=== PATIENT | male | born 1995 | race Caucasian/White ===

== ENCOUNTER 2016-07-23 15:43 | Emergency (ER) | payer BC ==
[2016-07-23 15:59] VITALS: BP 119/67
--- NOTE | 2016-07-23 16:42 | UC ---
Head Injury HPI - HPI Summary HPI Summary: The patient comes in today for: 1. Headache: Onset: Last night. Palliative/provocative: light and sounds makes his condition worse. Quality: Sharp at times and throbbing. Region: Whole head. Severity: 10/10 initially, but now "100/10." Time: Constant. Associated symptoms: Event: He "blacked out" 11 PM last night. He and his friends were not drinking alcohol, but were smoking pot 1-2 hours before. He was standing at the time of his event. It was then that his vision became blurry. He felt like he was going to faint. So he bent over and then he "passed out." He does not know if he hit his head at that time. But, from what his friends told him, he hit his head. He has a sore area on the back of his head. But, neither the patient nor his friends knew on what he hit the back of his head. He had LOC on the floor for "a few seconds." He was taken back to his friend's dorm. The patient walked with supported from one building to another--5 minute walk. While he was at his friends dorm room, some RA's came (some who had EMT training ). He was told to go to the ER. He went to [facility]. He states that he did not know what was going on at the hospital. He states that he had a CT scan and was told that he had a concussion and discharged. He states that while he was there, they "put a bunch of things on my chest and a thing on my finger." He was given something for vomiting while there. After he was discharged, his friend drove him back to his friend's dorm room--he does not know the time. He slept until "just 20 minutes ago" and came to see us. Vomiting: He vomited from the time he hit his head and through his stay at the hospital "more than once and less than 10." He also vomited x 1 on his ride back to his friends room. He slept until about "20 minutes ago" but once he woke up--he vomited two more times. He went to the gas station and vomited once more before coming here. He states that he has photophobia, increased fatigue, dizziness, nausea, but the nausea is now better. He denies any focal numbness or weakness. But, he would also feel like he was going to pass out. He states that he has neck pain also. 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 Endocrine History Of: Denies: Diabetes, Thyroid Disease, Hyperthyroidism, Hypothyroidism, Dyslipidemia Cardiovascular History Of: Denies: Cardiac Disorders, Hypertension, Pacemaker/ICD, Myocardial Infarction , Congestive Heart Failure, Atrial Fibrillation, Deep Vein Thrombosis, Bleeding Disorders Respiratory History Of: Denies: COPD, Asthma, Bronchitis, Pneumonia, Pulmonary Embolism GI/ History Of: Denies: Gastroesophageal Reflux, Ulcer, Gastrointestinal Bleed, Gall Bladder Disease, Kidney Stones, Diverticulitis, Renal Disease, Urosepsis Neurological History Of: Denies: TIA, CVA, Dementia, Seizures, Migraine Psychological History Of: Denies: Anxiety, Depression, Bipolar Disorder, Schizophrenia, Post Traumatic Stress Disorder Cancer History Of: Denies: Lung Cancer, Colorectal Cancer, Breast Cancer, Prostate Cancer, Cervical Cancer Other History Of: Negative For: HIV, Hepatitis B, Hepatitis C, Anticoagulant Therapy - Surgical History Surgical History: None - Family History Known Family History: Negative: Cardiac Disease, Hypertension - Social History Occupation: Student Alcohol Use: None Substance Use Type: Marijuana Smoking Status (MU): Never Smoked Tobacco Review of Systems Constitutional: Negative Skin: Negative Eyes: Negative ENT: Negative Respiratory: Negative Cardiovascular: Negative Gastrointestinal: Negative Genitourinary: Negative Neurological: Headache All Other Systems Reviewed And Are Negative: Yes Physical Exam Triage Information Reviewed: Yes Completion Of Physical Exam Limited Due To: Altered Mental Status Appearance: Pain Distress, Thin, Other: - He was laying in the room with all the lights off. He was able to give a coherent history with repeated questioning. He grimaced when moving. Vital Signs: Initial Vital Signs Temp 98.8 F 07/23/16 15:50 Pulse 71 07/23/16 15:50 Resp 18 07/23/16 15:50 BP 119/67 07/23/16 15:50 Pulse Ox 100 07/23/16 15:50 Vital Signs Reviewed: Yes Eyes: Positive: Conjunctiva Clear. Negative: Discharge ENT: Positive: Hearing grossly normal. Negative: Pharyngeal erythema, Nasal congestion, Nasal drainage, TM bulging, TM dull, TM red - No hemotympanium., Tonsillar swelling, Tonsillar exudate Dental: Negative: Gross Decay/Caries @, Dental Fracture @ Neck: Positive: Supple, Nontender, No Lymphadenopathy. Negative: Nuchal Rigidity - He did not have the nuchal rigidity of meningitis, but moving the head in flexion, extension and rotation and lateral flexion was painful. Respiratory: Positive: Lungs clear, No respiratory distress, No accessory muscle use. Negative: Crackles, Rhonchi, Wheezing Cardiovascular: Positive: RRR, No Murmur Abdomen Description: Positive: Nontender, No Organomegaly, Soft. Negative: Distended, Guarding Musculoskeletal: Positive: Strength Intact, ROM Intact, No Edema Neurological: Positive: Alert, Muscle Tone Normal, Other: - Neurologic exam: Inspection: no fasciculations. Cranial nerves (II-XII): intact Muscular tone: Reflexes: Biceps: 2+/2 x 2 Triceps: 2+/2 x 2 Brachioradialis: 2+/2 x 2 Patellar: 2+/2 x 2 Achilles: 2+/2 x 2 Coordination: Upper extremity: Alternating patting of thighs, alternating fingertips to thumb, index finger tip to nose--all normal. Lower extremity: Heel along deleon--normal. Strength: Upper extremity: appropriate for age and symmetrical Lower extremity: appropriate for age and symmetrical Gait: Regular: Normal. Heel to toe: He was able to complete this, but was a bit unsteady. Rhomberg: Normal. Sensation: No complaint of numbness. Psychological: Positive: Normal Response To Family, Age Appropriate Behavior, Consolable Skin: Positive: rashes - He had redness to the back of his head and this red area was tender, but no breaks in the skin. There was slight edema. Head Injury Course/Dx - Course Course Of Treatment: The patient and his mother were told that I was concerned about his worsening headache and thought he should be re-evaluated in an ER. He agreed with his mother to go to [facility]. - Differential Dx/Diagnosis Provider Diagnoses: Head injury with concussion. Neck pain. - Physician Notification/Consults Discussed Patient Care With: Dr. Sifuentes Time Discussed With Above Provider: 17:15 Discharge - Discharge Plan Condition: Stable Disposition: AGAINST MEDICAL ADVICE Additional Instructions: Please go directly to the [facility].
== END 2016-07-23 17:33 | disposition left against medical advice (07) ==
LOC: UCEAST 15:43
DX: S06.0X9A Concussion with loss of consciousness of unspecified duration, initial encounter (principal); M54.2 Cervicalgia; F12.929 Cannabis use, unspecified with intoxication, unspecified; W18.30XA Fall on same level, unspecified, initial encounter
CPT/HCPCS: 99213; G0463

== ENCOUNTER 2016-07-23 17:41 | Inpatient (IN) | payer BC ==
--- NOTE | 2016-07-23 18:47 | ED ---
Head Injury - HPI Summary HPI Summary: 21 M presents with head injury yesterday s/p passing out and hitting his head after smoking marijuana. He was seen in [facility] and sent home with concussion. He states that he never received his CT results. He says he has vomited 5 times and is nauseous. He admits to headache and sensitivity to light. He denies any blurry vision. He has bump on the back of his head but denies any abrasion. He states that he had tunnel vision before it occurred and became dizzy and tried to lower self to floor. He is currently dizzy now. He was transferred here from in a C-col[place]. He admits to neck pain that started today. He does not know his family history because he was admitted. He admits to smoking pot in his dorm room where the incident occurred. He does not remember anything after developing tunnel vision. He struck his head on the tile floor. His friend took him to the RA who had him sent to the [facility]. An EKG was done at [facility] and was normal. He does not know his family history because he was admitted at age 4 from [place] with his twin brother. - History Of Current Complaint Pain Intensity: 10 <eTresa Moore - Last Filed: 07/23/16 22:15> <Dwight Sifuentes - Last Filed: 08/07/16 22:15> - History Of Current Complaint Chief Complaint: EDHeadache Stated Complaint: HEAD INJURY Time Seen by Provider: 07/23/16 17:55 - Allergies/Home Medications Allergies/Adverse Reactions: Allergies Allergy/AdvReac Type Severity Reaction Status Date / Time No Known Allergies Allergy Verified 03/11/14 15:42 PMH/Surg Hx/FS Hx/Imm Hx Endocrine/Hematology History: Denies: Hx Anticoagulant Therapy, Hx Diabetes, Hx Thyroid Disease Cardiovascular History: Denies: Hx Congestive Heart Failure, Hx Deep Vein Thrombosis, Hx Hypertension , Hx Myocardial Infarction, Hx Pacemaker/ICD Respiratory History: Denies: Hx Asthma, Hx Chronic Obstructive Pulmonary Disease (COPD), Hx Lung Cancer, Hx Pneumonia, Hx Pulmonary Embolism GI History: Denies: Hx Gall Bladder Disease, Hx Gastrointestinal Bleed, Hx Ulcer, Hx Urosepsis History: Denies: Hx Kidney Stones, Hx Renal Disease Neurological History: Denies: Hx Dementia, Hx Migraine, Hx Seizures, Hx Transient Ischemic Attacks (TIA) Psychiatric History: Denies: Hx Anxiety, Hx Depression, Hx Schizophrenia, Hx Bipolar Disorder Infectious Disease History: No Infectious Disease History: Denies: Hx Hepatitis, Hx Human Immunodeficiency Virus (HIV), Traveled Outside the [place] in Last 30 Days - Family History Known Family History: Positive: Unknown - adopted - Social History Occupation: Student Alcohol Use: None Substance Use Type: Reports: Marijuana Smoking Status (MU): Never Smoked Tobacco <Teresa Moore - Last Filed: 07/23/16 22:15> Review of Systems Negative: Fever Positive: Photophobia. Negative: Blurred Vision, Diplopia Negative: Chest Pain Negative: Shortness Of Breath Positive: Vomiting - resolved, Nausea Positive: Myalgia - neck pain Positive: Headache, Syncope All Other Systems Reviewed And Are Negative: Yes <Teresa Moore - Last Filed: 07/23/16 22:15> Physical Exam Triage Information Reviewed: Yes Vital Signs On Initial Exam: Initial Vitals Temp Pulse Resp BP Pulse Ox 97.3 F 92 17 103/66 100 07/23/16 17:45 07/23/16 17:45 07/23/16 17:45 07/23/16 17:45 07/23/16 17:45 Vital Signs Reviewed: Yes Appearance: Positive: Well-Appearing Skin: Positive: Warm, Dry Head/Face: Positive: Normal Head/Face Inspection, Other - no step off, racoon eyes, wood sign Eyes: Positive: Normal, EOMI, VERNON, Conjunctiva Clear ENT: Positive: Normal ENT inspection, Pharynx normal, TMs normal Neck: Positive: Supple, No Lymphadenopathy, Other: - tenderness to side of neck Respiratory/Lung Sounds: Positive: Clear to Auscultation, Breath Sounds Present Cardiovascular: Positive: Normal, RRR Neurological: Positive: Sensory/Motor Intact, Alert, Oriented to Person Place, Time, CN Intact II-III <Teresa Moore - Last Filed: 07/23/16 22:15> Vital Signs On Initial Exam: Initial Vitals Temp Pulse Resp BP Pulse Ox 97.3 F 92 17 103/66 100 07/23/16 17:45 07/23/16 17:45 07/23/16 17:45 07/23/16 17:45 07/23/16 17:45 <Dwight Sifuentes Last Filed: 08/07/16 22:15> Diagnostics - Vital Signs Vital Signs Temp Pulse Resp BP Pulse Ox 07/23/16 17:45 97.3 F 92 17 103/66 100 - Laboratory Result Diagrams: 07/23/16 19:45 07/23/16 19:45 Lab Statement: Any lab studies that have been ordered have been reviewed, and results considered in the medical decision making process. - CT head CT Interpretation: Positive (See Comments) - IMPRESSION: 1. Nondisplaced fracture of the left occiput as described above. 2. 9 mm focus of subarachnoid hemorrhage just anterior to the anterior inferior margin of the right temporal lobe and small focus of subarachnoid hemorrhage along the medial aspect of the right frontal lobe. 3. No acute fracture or dislocation involving the cervical spin CT Interpretation Completed By: Radiologist <Teresa Moore - Last Filed: 07/23/16 22:15> - Vital Signs Vital Signs Temp Pulse Resp BP Pulse Ox 07/23/16 17:45 97.3 F 92 17 103/66 100 - Laboratory Lab Results: Lab Results 07/23/16 07/23/16 Range/Units 19:45 19:45 WBC 11.1 H (3.5-10.8) 10^3/ul RBC 5.42 H (4.0-5.4) 10^6/ul Hgb 15.1 (14.0-18.0) g/dl Hct 45 (42-52) % MCV 83 (80-94) fL MCH 28 (27-31) pg MCHC 34 (31-36) g/dl RDW 13 (10.5-15) % Plt Count 180 (150-450) 10^3/ul MPV 9 (7.4-10.4) um3 Neut % (Auto) 74.0 (38-83) % Lymph % (Auto) 16.6 L (25-47) % [place] % (Auto) 6.9 (1-9) % Eos % (Auto) 0.2 (0-6) % Baso % (Auto) 2.3 H (0-2) % Absolute Neuts (auto) 8.2 H (1.5-7.7) 10^3/ul Absolute Lymphs (auto) 1.8 (1.0-4.8) 10^3/ul Absolute Monos (auto) 0.8 (0-0.8) 10^3/ul Absolute Eos (auto) 0 (0-0.6) 10^3/ul Absolute Basos (auto) 0.3 H (0-0.2) 10^3/ul Absolute Nucleated RBC 0 10^3/ul Nucleated RBC % 0 Sodium 139 (133-145) mmol/L Potassium 3.8 (3.5-5.0) mmol/L Chloride 103 (101-111) mmol/L Carbon Dioxide 30 (22-32) mmol/L Anion Gap 6 (2-11) mmol/L BUN 14 (6-24) mg/dL Creatinine 0.91 (0.67-1.17) mg/dL Est GFR ( Amer) 136.6 (>60) Est GFR (Non-Af Amer) 106.2 (>60) BUN/Creatinine Ratio 15.4 (8-20) Glucose 109 H (70-100) mg/dL Calcium 10.0 (8.6-10.3) mg/dL Total Bilirubin 0.80 (0.2-1.0) mg/dL AST 16 (13-39) U/L ALT 10 (7-52) U/L Alkaline Phosphatase 85 (34-104) U/L Total Protein 7.3 (6.4-8.9) g/dL Albumin 4.5 (3.2-5.2) g/dL Globulin 2.8 (2-4) g/dL Albumin/Globulin Ratio 1.6 (1-3) Serum Alcohol < 10 (<10) mg/dL Result Diagrams: 07/23/16 19:45 07/23/16 19:45 Lab Statement: Any lab studies that have been ordered have been reviewed, and results considered in the medical decision making process. <Dwight Sifuentes - Last Filed: 08/07/16 22:15> Head Injury Course/Dx Course Of Treatment: 21 M presents with head injury s/p syncopal event yesterday. He has not passed out before. was smoking pot but denies any other drug or ETOH. Hit head on tile floor when passed out. went to [facility] and diagnosed with concussion, has vomitied 5 times since, admits to nausea, dizziness, and severe headache currently, normal neuro exam, CT head shows nondisplaced fracture of left occiput, 2 subarchnoid hemorrhage present, spoke with dr Fritz, neurology, instructed to place on keppra 750 mg bid for 7 days, keep systolic <140, get CT tomorrow, and admit to medicine, spoke with dr coburn who will admit, patient understands and agrees with plan - Diagnoses Differential Diagnosis/HQI/PQRI: Cerebral Contusion, Concussion With LOC, Intracranial Bleed - Physician Notifications Discussed Care Of Patient With: dr fritz Time Discussed With Above Provider: 19:29 - place on keppra 750 mg bid X7 days, admit to medicine, CT tomorrow, keep systolic bp below 140 <Teresa Moore - Last Filed: 07/23/16 22:15> Assessment/Plan: Patient not presented, seen or examen by me WR <Dwight Sifuentes - Last Filed: 08/07/16 22:15> - Diagnoses Provider Diagnoses: Fracture of left side of occipital bone, Subarachnoid hemorrhage Discharge <Teresa Moore - Last Filed: 07/23/16 22:15> <Dwight Sifuentes - Last Filed: 08/07/16 22:15> - Discharge Plan Condition: Stable Disposition: ADMITTED TO [facility]
--- NOTE | 2016-07-23 19:19 | RAD ---
indication: Head and neck pain after a fall following a syncopal episode the previous night COMPARISON: CT of the brain dated July 01, [address] scan of the brain and c-spine was performed without intravenous contrast enhancement. Contiguous axial sections were obtained from the lung apices through the vertex. BRAIN: Beginning at the left side of the foramen magnum (image 3 of 32) there is a nondisplaced fracture in the posterior occipital bone extending approximately to the level of the occipital tubercle (image 12 of 32). Along the medial margin of the right frontal lobe (axial image 7 and coronal image 34) there is a hyperdense focus compatible with subarachnoid hemorrhage measuring up to 8 mm in length in the axial plane. On the axial images there is an 8 mm extra-axial focus immediately anterior to the inferior most portion of the right temporal lobe (axial image 4 of 32). On the sagittal reformats (image 39 of 123) is extra-axial hemorrhage and measures 9 mm in the cephalocaudal projection. The brain is otherwise normal in appearance. The gomez-white matter differentiation is appropriately maintained. There is no significant mass effect, midline shift or evidence of herniation. The mastoid air cells are appropriately aerated. The visualized paranasal sinuses are clear. C-SPINE: There is nonspecific straightening of the normal cervical lordosis on the sagittal view images. The vertebral bodies and facet joints are otherwise are otherwise appropriately aligned. There is no acute fracture or dislocation. There is no hyperdense material in the cervical canal to indicate hemorrhage. The visualized musculature and soft tissues are normal. There is no gross lymphadenopathy visualized. The visualized portion of the lung apices are clear. IMPRESSION: 1. Nondisplaced fracture of the left occiput as described above. 2. 9 mm focus of subarachnoid hemorrhage just anterior to the anterior inferior margin of the right temporal lobe and small focus of subarachnoid hemorrhage along the medial aspect of the right frontal lobe. 3. No acute fracture or dislocation involving the cervical spine. Findings were discussed with HORACE Hannah over the telephone at 1915 hours on July 23, 2016.
[2016-07-23] MEDS ORDERED: levETIRAcetam IV* 750 MG in NS 0.9% 100 ML* 100 ML IVPB ONE (19:30)
[2016-07-23] MEDS ORDERED: Ondansetron INJ* 2 MG/ML VIAL IV ONE (19:52)
[2016-07-23] MEDS ORDERED: Morphine INJ* 2 MG/ML 1 ML CARPUJECT IV ONE (19:52)
[2016-07-23 19:55] LABS: Hematocrit 45 % (42-52); Hemoglobin 15.1 g/dl (14.0-18.0); Mean Corpuscular HGB Conc 34 g/dl (31-36); Mean Corpuscular Hemoglobin 28 pg (27-31); Mean Corpuscular Volume 83 fL (80-94); Mean Platelet Volume 9 um3 (7.4-10.4); Red Blood Count 5.42 10^6/ul (4.0-5.4); Red Cell Distribution Width 13 % (10.5-15); White Blood Count 11.1 10^3/ul (3.5-10.8)
[2016-07-23 19:58] LABS: Add Diff/Slide Review? Slide Review Added; Comments Flag Yes
[2016-07-23] MEDS ORDERED: Ibuprofen TAB* 800 MG PO PRN (19:58)
[2016-07-23] MEDS ORDERED: Ketorolac INJ* 30 MG/ML 1 ML VIAL IV PUSH PRN (19:59)
[2016-07-23 20:09] LABS: ALT 10 U/L (7-52); AST 16 U/L (13-39); Albumin 4.5 g/dL (3.2-5.2); Alkaline Phosphatase 85 U/L (34-104); Anion Gap 6 mmol/L (2-11); BUN/Creatinine Ratio 15.4 (8-20); Blood Urea Nitrogen 14 mg/dL (6-24); CO2 Carbon Dioxide 30 mmol/L (22-32); Chloride 103 mmol/L (101-111); EGFR African American 136.6 (>60); EGFR Non-African American 106.2 (>60); Globulin 2.8 g/dL (2-4); Glucose 109 mg/dL (70-100); Potassium 3.8 mmol/L (3.5-5.0); Sodium 139 mmol/L (133-145); Total Protein 7.3 g/dL (6.4-8.9)
[2016-07-23] MEDS ORDERED: Iohexol 350* (CONTRAST) 500 ML MDV IV ONE (20:13)
[2016-07-23 20:30] LABS: Alcohol < 10 mg/dL (<10)
[2016-07-23] MEDS ORDERED: fentaNYL* 50 MCG/ML 2 ML VIAL (100 MCG VIAL) IV SLOW PU ONE (20:33)
--- NOTE | 2016-07-23 20:50 | ED ---
Head Injury - HPI Summary HPI Summary: 21 M presents with traumatic head injury yesterday s/p passing out and hitting his head from standing position after smoking marijuana . He was seen in [facility] and sent home with concussion last night . He states that he never received his CT result. He says he has vomited several times and is nauseous. He admits to headache and photophobia. He denies any blurry vision. He has bump on the back of his head but denies any abrasion. He states that he had tunnel vision before it occurred and became dizzy and tried to lower self to floor. He is currently dizzy now. He was transferred here in a C-collar. He admits to neck pain that started today. He does not remember anything after developing tunnel vision. He struck his head on the tile floor. His friend took him to the RA who had him sent to the [facility]. An EKG was done at [facility] and was normal. He does not know his family history because he was admitted at age 4 from [place] with his twin brother. - History Of Current Complaint Chief Complaint: EDHeadache Stated Complaint: HEAD INJURY Time Seen by Provider: 07/23/16 17:55 Hx Obtained From: Patient Mechanism Of Injury: Blunt Trauma Onset/Duration: Started Days Ago, Worse Since Onset of Pain: Immediate Severity Currently: Severe Severity Initially: Moderate Pain Intensity: 10 Pain Scale Used: 0-10 Numeric Location of Head Injury: Occipital Location: Diffuse Character: Dull Associated Signs And Symptoms: LOC Duration Unknown, Neck Pain - Risk Factors SDH Risk Factor: Negative Risk Factors For Cervical Spine Injury: Evidence Of Intoxication - Allergies/Home Medications Allergies/Adverse Reactions: Allergies Allergy/AdvReac Type Severity Reaction Status Date / Time No Known Allergies Allergy Verified 03/11/14 15:42 PMH/Surg Hx/FS Hx/Imm Hx Endocrine/Hematology History: Denies: Hx Anticoagulant Therapy, Hx Diabetes, Hx Thyroid Disease Cardiovascular History: Denies: Hx Congestive Heart Failure, Hx Deep Vein Thrombosis, Hx Hypertension , Hx Myocardial Infarction, Hx Pacemaker/ICD Respiratory History: Denies: Hx Asthma, Hx Chronic Obstructive Pulmonary Disease (COPD), Hx Lung Cancer, Hx Pneumonia, Hx Pulmonary Embolism GI History: Denies: Hx Gall Bladder Disease, Hx Gastrointestinal Bleed, Hx Ulcer, Hx Urosepsis History: Denies: Hx Kidney Stones, Hx Renal Disease Neurological History: Denies: Hx Dementia, Hx Migraine, Hx Seizures, Hx Transient Ischemic Attacks (TIA) Psychiatric History: Denies: Hx Anxiety, Hx Depression, Hx Schizophrenia, Hx Bipolar Disorder Infectious Disease History: No Infectious Disease History: Denies: Hx Hepatitis, Hx Human Immunodeficiency Virus (HIV), Traveled Outside the [place] in Last 30 Days - Family History Known Family History: Positive: Unknown - adopted, Other - no history of sudden cardiac Negative: Cardiac Disease, Hypertension - Social History Occupation: Student Alcohol Use: None Substance Use Type: Reports: Marijuana Smoking Status (MU): Never Smoked Tobacco Review of Systems Negative: Fever Positive: Photophobia. Negative: Blurred Vision, Diplopia Negative: Chest Pain Negative: Shortness Of Breath Positive: Vomiting - resolved, Nausea Positive: Myalgia - neck pain Positive: Headache, Syncope All Other Systems Reviewed And Are Negative: Yes Physical Exam Triage Information Reviewed: Yes Vital Signs On Initial Exam: Initial Vitals Temp Pulse Resp BP Pulse Ox 97.3 F 92 17 103/66 100 07/23/16 17:45 07/23/16 17:45 07/23/16 17:45 07/23/16 17:45 07/23/16 17:45 Vital Signs Temp 97.3 F 07/23/16 17:45 Pulse 92 07/23/16 17:45 Resp 18 07/23/16 20:41 BP 103/66 07/23/16 17:45 Pulse Ox 100 07/23/16 17:45 Intake & Output 07/23/16 07/23/16 07/24/16 07:59 19:59 07:59 Intake Total 100 Balance 100 Weight 125 lb 125 lb Intake: IV Fluids 100 Vital Signs Reviewed: Yes Appearance: Positive: Well-Appearing, Thin Skin: Positive: Warm, Dry Head/Face: Positive: Scalp - occpital area abrasion, Other - no step off, racoon eyes, wood sign Eyes: Positive: Normal, EOMI, VERNON, Conjunctiva Clear ENT: Positive: Normal ENT inspection, Pharynx normal Neck: Positive: Supple, Nontender, Other: - tenderness to side of neck Respiratory/Lung Sounds: Positive: Clear to Auscultation, Breath Sounds Present Cardiovascular: Positive: Normal, RRR Abdomen Description: Positive: Nontender Neurological: Positive: Sensory/Motor Intact, Alert, Oriented to Person Place, Time, CN Intact II-III, Facial Symmetry, Speech Normal - [place] Coma Scale Best Eye Response: 4 - Spontaneous Best Motor Response: 6 - Obeys Commands Best Verbal Response: 5 - Oriented Diagnostics - Vital Signs Vital Signs Temp Pulse Resp BP Pulse Ox 07/23/16 20:41 18 07/23/16 20:05 18 07/23/16 17:45 97.3 F 92 17 103/66 100 - Laboratory Lab Results: Lab Results 07/23/16 07/23/16 Range/Units 19:45 19:45 WBC 11.1 H (3.5-10.8) 10^3/ul RBC 5.42 H (4.0-5.4) 10^6/ul Hgb 15.1 (14.0-18.0) g/dl Hct 45 (42-52) % MCV 83 (80-94) fL MCH 28 (27-31) pg MCHC 34 (31-36) g/dl RDW 13 (10.5-15) % Plt Count 180 (150-450) 10^3/ul MPV 9 (7.4-10.4) um3 Neut % (Auto) 74.0 (38-83) % Lymph % (Auto) 16.6 L (25-47) % [place] % (Auto) 6.9 (1-9) % Eos % (Auto) 0.2 (0-6) % Baso % (Auto) 2.3 H (0-2) % Absolute Neuts (auto) 8.2 H (1.5-7.7) 10^3/ul Absolute Lymphs (auto) 1.8 (1.0-4.8) 10^3/ul Absolute Monos (auto) 0.8 (0-0.8) 10^3/ul Absolute Eos (auto) 0 (0-0.6) 10^3/ul Absolute Basos (auto) 0.3 H (0-0.2) 10^3/ul Absolute Nucleated RBC 0 10^3/ul Nucleated RBC % 0 Sodium 139 (133-145) mmol/L Potassium 3.8 (3.5-5.0) mmol/L Chloride 103 (101-111) mmol/L Carbon Dioxide 30 (22-32) mmol/L Anion Gap 6 (2-11) mmol/L BUN 14 (6-24) mg/dL Creatinine 0.91 (0.67-1.17) mg/dL Est GFR ( Amer) 136.6 (>60) Est GFR (Non-Af Amer) 106.2 (>60) BUN/Creatinine Ratio 15.4 (8-20) Glucose 109 H (70-100) mg/dL Calcium 10.0 (8.6-10.3) mg/dL Total Bilirubin 0.80 (0.2-1.0) mg/dL AST 16 (13-39) U/L ALT 10 (7-52) U/L Alkaline Phosphatase 85 (34-104) U/L Total Protein 7.3 (6.4-8.9) g/dL Albumin 4.5 (3.2-5.2) g/dL Globulin 2.8 (2-4) g/dL Albumin/Globulin Ratio 1.6 (1-3) Serum Alcohol < 10 (<10) mg/dL Result Diagrams: 07/23/16 19:45 07/23/16 19:45 Lab Statement: Any lab studies that have been ordered have been reviewed, and results considered in the medical decision making process. - CT head CT Interpretation: Positive (See Comments) - IMPRESSION: 1. Nondisplaced fracture of the left occiput as described above. 2. 9 mm focus of subarachnoid hemorrhage just anterior to the anterior inferior margin of the right temporal lobe and small focus of subarachnoid hemorrhage along the medial aspect of the right frontal lobe. 3. No acute fracture or dislocation involving the cervical spin CT Interpretation Completed By: Radiologist Head Injury Course/Dx Course Of Treatment: 21 M presents with blunt head injury s/p syncopal and fall event yesterday. He was smoking pot but denies any other drug or ETOH. Hit head on tile floor when passed out. went to [facility] ER and diagnosed with concussion, has vomitied several times since, admits to nausea, dizziness, and severe headache currently, neuro exam intact , CT head shows nondisplaced fracture of left occiput, 2 subarchnoid hemorrhage present,. Plan: Admit to observation, Medicine admission appreciated. Headache control, avoid NSAIDs and anitplatelets and antiocoagulants. keppra 750 mg bid for 7 days,. keep systolic BP <140,. Repeat CT tomorrow. Disussed with ED providers,patient and family, they understand and agree with plan. - Diagnoses Differential Diagnosis/HQI/PQRI: Cerebral Contusion, Concussion With LOC, Intracranial Bleed, Skull Fracture Provider Diagnoses: Fracture of left side of occipital bone, Subarachnoid hemorrhage - Physician Notifications Discussed Care Of Patient With: ED providers Discharge - Discharge Plan Condition: Stable Disposition: ADMITTED TO [facility] Referrals: Clive Weinberg MD [Medical Doctor] -
[2016-07-23] MEDS ORDERED: fentaNYL* 50 MCG/ML 2 ML VIAL (100 MCG VIAL) IV SLOW PU PRN (21:21)
[2016-07-23] MEDS: Morphine INJ* 4 MG/ML 1 ML CARPUJECT IV PRN (21:39)
[2016-07-23] MEDS: NS 0.9% 1000 ML* 1,000 ML IV SCH (22:47)
--- NOTE | 2016-07-24 01:09 | HP ---
HOSPITAL MEDICINE HISTORY AND PHYSICAL: DATE OF ADMISSION: 07/23/16 PRIMARY CARE PHYSICIAN: Dr. Pathak. ATTENDING PHYSICIAN: Dr. Parish Curtis *(dictation provided by Radha Conway NP). CHIEF COMPLAINT: Headache, nausea and vomiting. HISTORY OF PRESENT ILLNESS: Mr. Hunter is a 21-year-old male with no significant past medical history other than history of traumatic concussions, who presents today to the emergency room with concern for headache and nausea and vomiting. Mr. Hunter states he has been in his normal state of health when 2 days ago, he had the sudden onset of tunnel vision and syncopized while hanging out with his friends. He reports that he hit the back of his head and went unconscious. When he awoke, he "felt terrible" and had severe headache. The patient was taken to [facility] where per his report, the CT scan was obtained and he was diagnosed with a concussion. He went home with his friends and had some nausea and slept. He later returned to his home and had some nausea and vomiting. He contacted his brother who contacted his mother and she recommended that he come to our emergency room for re- evaluation. I will note that the patient does not mention any use of drugs, specifically marijuana, although the report from the emergency room physician was that the patient's syncopal episode was related to smoking marijuana. The patient's mother was at the bedside during the time of my evaluation. In our emergency room, Mr. Hunter was confirmed to have a subarachnoid hemorrhage that was very small on CT of the brain. A cervical spine CT did not show any injury. He is complaining of headache and nausea, but he has not vomited. He is photophobic. Based on Mr. Hunter' presentation with subarachnoid hemorrhage after hitting the back of his head, Hospital Medicine was called regarding admission. Dr. Sykes from Neurosurgery was called regarding neurosurgical consultation. PAST MEDICAL HISTORY: History of 4 previous concussions that were traumatic. MEDICATIONS: None. ALLERGIES: None. FAMILY HISTORY: The patient's mother and father are alive and healthy. No other past medical history was available. SOCIAL HISTORY: The patient denies any drug or alcohol use, but again this was reported by the emergency room physician. I would like to question the patient about this again tomorrow when his mother is not in the room. He states his mother would be the healthcare proxy. REVIEW OF SYSTEMS: A 14-point review of systems was completed with Mr. Hunter and all those not mentioned above were negative. PHYSICAL EXAMINATION GENERAL: Mr. Hunter is lying in the bed. He appears uncomfortable but in no acute distress. VITAL SIGNS: Temperature 97.3, pulse rate 92, respiratory rate 17, O2 saturation 100% on room air, blood pressure 103/66. LUNGS: Clear to auscultation bilaterally with no accessory muscle use and good aeration. HEART: S1, S2. No murmur, rub, or gallop and regular. ABDOMEN: Soft, nontender with bowel sounds positive x4. EXTREMITIES: No cyanosis or edema. NEUROLOGIC: He is alert. He is oriented x3. His pupils are equal and reactive. His extraocular movements are intact. He moves all extremities equally. There is no facial asymmetry or focal weakness. SKIN: Intact. LABORATORY DATA: Thus far, we have WBC of 11.1, hemoglobin 15.1, hematocrit 45 , platelet count 180. CT of brain is read as follows: "Nondisplaced fracture of the left occiput as described above, 9 mm focus of subarachnoid hemorrhage just anterior to the anterior inferior margin of the right temporal lobe and small focus of subarachnoid hemorrhage along the medial aspect of the right frontal lobe. No acute fracture or dislocation involving the cervical spine." ASSESSMENT: Mr. Hunter is a 21-year-old male with past medical history of 4 traumatic concussions, who presents to the emergency room after hitting the back of his head and a syncopal episode suspected to be secondary to smoking marijuana and is found to have subarachnoid hemorrhage with occiput fracture. Our plans are for observation in the hospital for the followin. Subarachnoid hemorrhage with occiput fracture. I appreciate the support from Dr. Sykes from neurosurgical services. He recommends that the patient start on Keppra tonight, which has been initiated and he will continue on 500 mg IV b.i.d. with further adjustment in the dose per Dr. Sykes. Dr. Sykes also recommended CTA of the head, which has been ordered. The patient will have neurological checks q.2 hours and will have seizure precautions. 2. DVT prophylaxis with early mobility. 3. Social history. I would like to again consult the patient further about his drug and alcohol use but will seek to do so after asking his mother to leave the room or when his mother is not available. He was not interested in having his mother leave the room this evening. We will likely refer him on for social media content manager, either here to the hospital or through 3 for counseling regarding drug use. 4. Code status is full code. TIME SPENT: Approximately 60 minutes was spent on this admission of this patient; more than half the time spent with him and his mother at the bedside, reviewing the events leading up to this hospitalization, performing physical examination, and reviewing my plan of care. RADHA CONWAY NP CC: Dr. Pathak* [id number]/CPS #: [id number] YARELI
--- NOTE | 2016-07-24 06:09 | PN ---
Progress Note - Progress Note Note: Discussed with Evan Conway NP. Mr Hunter is a 21M presenting s/p syncope with head injury and finding of small traumatic ICH. ICU admit, neurochecks. Neurosurgical consult. Agree with assessment and management.
[2016-07-24] MEDS: Acetaminophen TAB* 325 MG PO PRN (07:42)
[2016-07-24] MEDS: NS 0.9% 1000 ML* 1,000 ML IV SCH ×2 (07:43→19:06)
[2016-07-24] MEDS ORDERED: levETIRAcetam 500 MG IVPREMIX* 500 MG/100 ML BAG IV SCH (09:00)
[2016-07-24] MEDS ORDERED: levETIRAcetam IV* 500 MG in NS 0.9% 100 ML* 100 ML IVPB SCH (09:00)
[2016-07-24] MEDS: Morphine INJ* 4 MG/ML 1 ML CARPUJECT IV PRN (09:14)
[2016-07-24] MEDS: levETIRAcetam TAB* 500 MG PO SCH ×2 (09:14→20:42)
[2016-07-24] MEDS ORDERED: Ondansetron INJ* 2 MG/ML VIAL IV PRN (09:24)
--- NOTE | 2016-07-24 09:32 | PN ---
Progress Note - Progress Note SOAP: Subjective: [Still some NIXON, no n or v, seizure or other events, sleeping comfortably] Objective: [ Vital Signs Temp 99.4 F 07/24/16 08:19 Pulse 80 07/24/16 09:09 Resp 15 07/24/16 09:14 BP 109/60 07/24/16 09:09 Pulse Ox 96 07/24/16 09:09 Intake & Output 07/23/16 07/24/16 07/24/16 19:59 07:59 19:59 Intake Total 869 Balance 869 Weight 125 lb 120 lb 5.958 oz Intake: IV Fluids 819 NS (0.9%) 719 Oral 50 sleeping comfortably, wakes up and AAOx3 PERRLA, EOMI face symmetric Tongue ML motor 5/5 no drift no leg lag Laboratory Results WBC 11.1 10^3/ul (3.5-10.8) H 07/23/16 19:45 RBC 5.42 10^6/ul (4.0-5.4) H 07/23/16 19:45 Hgb 15.1 g/dl (14.0-18.0) 07/23/16 19:45 Hct 45 % (42-52) 07/23/16 19:45 MCV 83 fL (80-94) 07/23/16 19:45 MCH 28 pg (27-31) 07/23/16 19:45 MCHC 34 g/dl (31-36) 07/23/16 19:45 RDW 13 % (10.5-15) 07/23/16 19:45 Plt Count 180 10^3/ul (150-450) 07/23/16 19:45 MPV 9 um3 (7.4-10.4) 07/23/16 19:45 Neut % (Auto) 74.0 % (38-83) 07/23/16 19:45 Lymph % (Auto) 16.6 % (25-47) L 07/23/16 19:45 [place] % (Auto) 6.9 % (1-9) 07/23/16 19:45 Eos % (Auto) 0.2 % (0-6) 07/23/16 19:45 Baso % (Auto) 2.3 % (0-2) H 07/23/16 19:45 Absolute Neuts (auto) 8.2 10^3/ul (1.5-7.7) H 07/23/16 19:45 Absolute Lymphs (auto) 1.8 10^3/ul (1.0-4.8) 07/23/16 19:45 Absolute Monos (auto) 0.8 10^3/ul (0-0.8) 07/23/16 19:45 Absolute Eos (auto) 0 10^3/ul (0-0.6) 07/23/16 19:45 Absolute Basos (auto) 0.3 10^3/ul (0-0.2) H 07/23/16 19:45 Absolute Nucleated RBC 0 10^3/ul 07/23/16 19:45 Nucleated RBC % 0 07/23/16 19:45 Sodium 139 mmol/L (133-145) 07/23/16 19:45 Potassium 3.8 mmol/L (3.5-5.0) 07/23/16 19:45 Chloride 103 mmol/L (101-111) 07/23/16 19:45 Carbon Dioxide 30 mmol/L (22-32) 07/23/16 19:45 Anion Gap 6 mmol/L (2-11) 07/23/16 19:45 BUN 14 mg/dL (6-24) 07/23/16 19:45 Creatinine 0.91 mg/dL (0.67-1.17) 07/23/16 19:45 Est GFR ( Amer) 136.6 (>60) 07/23/16 19:45 Est GFR (Non-Af Amer) 106.2 (>60) 07/23/16 19:45 BUN/Creatinine Ratio 15.4 (8-20) 07/23/16 19:45 Glucose 109 mg/dL (70-100) H 07/23/16 19:45 Calcium 10.0 mg/dL (8.6-10.3) 07/23/16 19:45 Total Bilirubin 0.80 mg/dL (0.2-1.0) 07/23/16 19:45 AST 16 U/L (13-39) 07/23/16 19:45 ALT 10 U/L (7-52) 07/23/16 19:45 Alkaline Phosphatase 85 U/L (34-104) 07/23/16 19:45 Total Protein 7.3 g/dL (6.4-8.9) 07/23/16 19:45 Albumin 4.5 g/dL (3.2-5.2) 07/23/16 19:45 Globulin 2.8 g/dL (2-4) 07/23/16 19:45 Albumin/Globulin Ratio 1.6 (1-3) 07/23/16 19:45 Serum Alcohol < 10 mg/dL (<10) 07/23/16 19:45 ] Assessment: [21 M presents with blunt head injury s/p syncopal and fall event. Hit head on tile floor when passed out. CT head shows nondisplaced fracture of left occiput , small right temporal and frontal subarchnoid hemorrhage headache better, neuro exam intact. Plan: [Headache control, avoid NSAIDs and anitplatelets and antiocoagulants. keppra 750 mg bid for 7 days Keep systolic BP <140. If repeat CT stable, advance care, transfer to floor PT OT discharge planing ]
[2016-07-24] MEDS ORDERED: oxyCODONE/Acetamin 5/325 MG* TAB PO PRN (09:52)
--- NOTE | 2016-07-24 10:02 | PN ---
Subjective Date of Service: 07/24/16 Interval History: Mr. Hunter continues to have a 10/10 headache with nausea. He denies vision changes or other complaint. Objective Active Medications: Acetaminophen (Tylenol Tab*) 650 mg PO Q6H PRN Fentanyl Citrate (Fentanyl*) 50 mcg IV SLOW PU Q2H PRN Sodium Chloride (Ns 0.9% 1000 Ml*) 1,000 mls @ 100 mls/hr IV PER RATE REYNA Levetiracetam (Keppra Tab*) 750 mg PO BID REYNA Morphine Sulfate (Morphine Inj (Syringe)*) 4 mg IV Q4H PRN Ondansetron HCl (Zofran Inj*) 4 mg IV Q6H PRN Oxycodone/Acetaminophen (Percocet 5/325 Tab*) 1 tab PO Q4H PRN Oxycodone/Acetaminophen (Percocet 5/325 Tab*) 2 tab PO Q4H PRN Vital Signs 07/23/16 07/23/16 07/23/16 20:05 20:41 21:39 Temperature Pulse Rate Respiratory 18 18 18 Rate Blood Pressure (mmHg) O2 Sat by Pulse Oximetry 07/23/16 07/23/16 07/23/16 21:45 22:18 22:19 Temperature Pulse Rate 64 58 Respiratory 18 18 18 Rate Blood Pressure 111/64 99/49 (mmHg) O2 Sat by Pulse 99 99 Oximetry 07/23/16 07/23/16 07/23/16 22:30 22:40 22:43 Temperature 99.2 F Pulse Rate 63 71 Respiratory 16 15 15 Rate Blood Pressure 105/57 118/59 118/59 (mmHg) O2 Sat by Pulse 97 99 Oximetry 07/23/16 07/23/16 07/23/16 22:45 23:00 23:15 Temperature Pulse Rate 68 69 63 Respiratory 13 16 16 Rate Blood Pressure 113/60 113/61 100/46 (mmHg) O2 Sat by Pulse 99 100 100 Oximetry 07/23/16 07/23/16 07/23/16 23:30 23:45 23:48 Temperature Pulse Rate 55 57 52 Respiratory 14 16 17 Rate Blood Pressure 102/62 101/61 (mmHg) O2 Sat by Pulse 96 99 99 Oximetry 07/24/16 07/24/16 07/24/16 00:00 00:01 00:15 Temperature 99.2 F Pulse Rate 55 55 52 Respiratory 20 20 24 Rate Blood Pressure 108/52 95/57 (mmHg) O2 Sat by Pulse 97 97 98 Oximetry 07/24/16 07/24/16 07/24/16 00:30 00:45 01:00 Temperature Pulse Rate 58 62 57 Respiratory 19 19 16 Rate Blood Pressure 100/54 104/54 106/66 (mmHg) O2 Sat by Pulse 96 96 99 Oximetry 07/24/16 07/24/16 07/24/16 01:15 01:30 01:45 Temperature Pulse Rate 52 46 52 Respiratory 22 15 17 Rate Blood Pressure 106/56 101/56 102/53 (mmHg) O2 Sat by Pulse 97 98 97 Oximetry 07/24/16 07/24/16 07/24/16 02:00 02:15 02:30 Temperature Pulse Rate 61 57 82 Respiratory 15 18 15 Rate Blood Pressure 114/60 117/57 107/64 (mmHg) O2 Sat by Pulse 96 98 99 Oximetry 07/24/16 07/24/16 07/24/16 02:45 03:00 03:15 Temperature Pulse Rate 46 56 76 Respiratory 17 19 15 Rate Blood Pressure 107/60 102/59 119/63 (mmHg) O2 Sat by Pulse 99 97 98 Oximetry 07/24/16 07/24/16 07/24/16 03:30 03:45 04:00 Temperature 98.8 F Pulse Rate 58 59 59 Respiratory 17 17 19 Rate Blood Pressure 111/60 106/43 99/46 (mmHg) O2 Sat by Pulse 100 99 99 Oximetry 07/24/16 07/24/16 07/24/16 04:15 04:30 04:45 Temperature Pulse Rate 90 61 60 Respiratory 17 17 16 Rate Blood Pressure 119/60 122/59 (mmHg) O2 Sat by Pulse 98 99 98 Oximetry 07/24/16 07/24/16 07/24/16 05:00 05:15 05:30 Temperature Pulse Rate 68 65 57 Respiratory 17 16 16 Rate Blood Pressure 122/59 112/59 108/57 (mmHg) O2 Sat by Pulse 99 97 98 Oximetry 07/24/16 07/24/16 07/24/16 06:00 06:06 06:30 Temperature Pulse Rate 65 64 69 Respiratory 19 18 19 Rate Blood Pressure 117/63 127/59 (mmHg) O2 Sat by Pulse 97 98 97 Oximetry 07/24/16 07/24/16 07/24/16 07:00 07:30 07:49 Temperature Pulse Rate 64 66 Respiratory 18 18 15 Rate Blood Pressure 123/57 122/61 (mmHg) O2 Sat by Pulse 97 96 Oximetry 07/24/16 07/24/16 07/24/16 07:51 08:00 08:19 Temperature 100.4 F 99.4 F Pulse Rate 66 Respiratory 16 Rate Blood Pressure (mmHg) O2 Sat by Pulse 96 Oximetry 07/24/16 07/24/16 07/24/16 09:00 09:09 09:14 Temperature Pulse Rate 65 80 Respiratory 17 18 15 Rate Blood Pressure 109/60 (mmHg) O2 Sat by Pulse 95 96 Oximetry Oxygen Devices in Use Now: None Appearance: Male lying in bed in NAD Respiratory: Symmetrical Chest Expansion and Respiratory Effort, Clear to Auscultation Cardiovascular: NL Sounds; No Murmurs; No JVD, No Edema Abdominal: NL Sounds; No Tenderness; No Distention Extremities: No Edema Skin: No Rash or Ulcers Neurological: Alert and Oriented x 3, NL Muscle Strength and Tone, - - no focal neurologic deficits, pupils equal and reactive, EOMS intact Result Diagrams: 07/23/16 19:45 07/23/16 19:45 Additional Lab and Data: Lab Results 07/23/16 07/23/16 Range/Units 19:45 19:45 WBC 11.1 H (3.5-10.8) 10^3/ul RBC 5.42 H (4.0-5.4) 10^6/ul Hgb 15.1 (14.0-18.0) g/dl Hct 45 (42-52) % MCV 83 (80-94) fL MCH 28 (27-31) pg MCHC 34 (31-36) g/dl RDW 13 (10.5-15) % Plt Count 180 (150-450) 10^3/ul MPV 9 (7.4-10.4) um3 Neut % (Auto) 74.0 (38-83) % Lymph % (Auto) 16.6 L (25-47) % [place] % (Auto) 6.9 (1-9) % Eos % (Auto) 0.2 (0-6) % Baso % (Auto) 2.3 H (0-2) % Absolute Neuts (auto) 8.2 H (1.5-7.7) 10^3/ul Absolute Lymphs (auto) 1.8 (1.0-4.8) 10^3/ul Absolute Monos (auto) 0.8 (0-0.8) 10^3/ul Absolute Eos (auto) 0 (0-0.6) 10^3/ul Absolute Basos (auto) 0.3 H (0-0.2) 10^3/ul Absolute Nucleated RBC 0 10^3/ul Nucleated RBC % 0 Sodium 139 (133-145) mmol/L Potassium 3.8 (3.5-5.0) mmol/L Chloride 103 (101-111) mmol/L Carbon Dioxide 30 (22-32) mmol/L Anion Gap 6 (2-11) mmol/L BUN 14 (6-24) mg/dL Creatinine 0.91 (0.67-1.17) mg/dL Est GFR ( Amer) 136.6 (>60) Est GFR (Non-Af Amer) 106.2 (>60) BUN/Creatinine Ratio 15.4 (8-20) Glucose 109 H (70-100) mg/dL Calcium 10.0 (8.6-10.3) mg/dL Total Bilirubin 0.80 (0.2-1.0) mg/dL AST 16 (13-39) U/L ALT 10 (7-52) U/L Alkaline Phosphatase 85 (34-104) U/L Total Protein 7.3 (6.4-8.9) g/dL Albumin 4.5 (3.2-5.2) g/dL Globulin 2.8 (2-4) g/dL Albumin/Globulin Ratio 1.6 (1-3) Serum Alcohol < 10 (<10) mg/dL Assess/Plan/Problems-Billing Assessment: Mr. Hunter is a 21 yo male with history of four prior concussions who was admitted after syncopizing while smoking marijuana, striking his head, and sustaining an occipital fracture and subarachnoid hemorrhage. - Patient Problems (1) Subarachnoid hemorrhage Comment: Repeat CT brain pending for this AM. Neurological exam benign. Continue efforts at pain control for severe headache. Appreciate neurosurgical consult. (2) Drug abuse Comment: Pt reports infrequent marijuana use and denies alcohol or other drug use. Social work consult placed. (3) DVT prophylaxis Comment: Add SCDs while headache prevents mobility. (4) Full code status Status and Disposition: Inpatient. Transfer to medical floor.
--- NOTE | 2016-07-24 12:26 | RAD ---
INDICATION: Follow-up subarachnoid hemorrhage in a patient with traumatic left occipital bone fracture. COMPARISON: CT of the brain dated July 23, 2016. TECHNIQUE: Contiguous axial sections of the brain were obtained from the skull base to the vertex without contrast. Reformats in the sagittal and coronal planes were created and reviewed. FINDINGS: Unchanged from the previous CT of the brain there is a nondisplaced fracture involving the left occiput that extends to the left margin of the foramen magnum. Immediately anterior to the inferior most portion of the right temporal lobe (image 10 of 36) there is again seen a 10 x 10 mm hyperdense focus most consistent with traumatic subarachnoid hemorrhage not substantially changed since the previous CT examination. In the sagittal plane this hemorrhage measures 9 mm in greatest cephalocaudal projection unchanged from the previous CT of the brain. Along the medial aspect of the right frontal lobe apices image 15 of 36) there is again seen a small hyperdense focus consistent with subarachnoid hemorrhage that has not changed or enlarged substantially since the most recent CT of the brain. In the coronal plane this focus measures approximately 8 cm in the horizontal plane not substantially changed from the previous CT examination. IMPRESSION: The patient's left occipital bone fracture and foci of subarachnoid hemorrhage adjacent to the right temporal and frontal lobes have not changed substantially when compared to the most recent CT of the brain dated July 23, 2016.
[2016-07-24] MEDS: oxyCODONE/Acetamin 5/325 MG* TAB PO PRN ×2 (17:37→22:13)
[2016-07-24] MEDS ORDERED: PTO:Bimatoprost 0.01% OPHTH (NF) 2.5 ML BTL BOTH EYES SCH (18:00)
[2016-07-25] MEDS: NS 0.9% 1000 ML* 1,000 ML IV SCH (05:41)
[2016-07-25] MEDS: levETIRAcetam TAB* 500 MG PO SCH (07:47)
[2016-07-25] MEDS: Acetaminophen TAB* 325 MG PO PRN (07:47)
--- NOTE | 2016-07-25 10:17 | PN ---
Progress Note - Progress Note SOAP: Subjective: [This is a 21 year old male with occipital fracture and right temporal contusion resulting from blunt injury to the head. He continues to complain of headache and pain behind his eyes this morning. He denies, nausea, vomiting, vision changes, upper extremity numbness, tingling, weakness and pain.] Objective: [ Vital Signs: Temp Pulse Resp BP Pulse Ox 98.6 F 63 16 111/66 96 07/25/16 07:37 07/25/16 07:37 07/25/16 08:00 07/25/16 07:37 07/25/16 07:37 General: Alert and oriented. Neuro: Motor and sensory intact. EOMI ] Assessment: [Stable. Recent CT is unchanged. Pain is well controlled with current medications. No new symptoms. ] Plan: [1. Continue pain management and nausea control. 2. PT and OT consults 3. Continue Keppra.]
--- NOTE | 2016-07-25 11:16 | PN ---
Subjective Date of Service: 07/25/16 Interval History: Mr. Hunter states he continues to have a headache and feel "terrible." He denies chest pain, SOB, nausea, or abdominal pain. Objective Active Medications: Acetaminophen (Tylenol Tab*) 650 mg PO Q6H PRN Bimatoprost (Lumigan 0.01% Ophth (Nf)) 1 drop BOTH EYES QPM REYNA Fentanyl Citrate (Fentanyl*) 50 mcg IV SLOW PU Q2H PRN Levetiracetam (Keppra Tab*) 750 mg PO BID REYNA Ondansetron HCl (Zofran Inj*) 4 mg IV Q6H PRN Oxycodone/Acetaminophen (Percocet 5/325 Tab*) 1 tab PO Q4H PRN Oxycodone/Acetaminophen (Percocet 5/325 Tab*) 2 tab PO Q4H PRN Vital Signs 07/24/16 07/24/16 07/24/16 12:00 12:26 13:06 Temperature 98.7 F 98.7 F Pulse Rate 85 56 Respiratory 14 14 16 Rate Blood Pressure 111/62 110/62 (mmHg) O2 Sat by Pulse 98 100 Oximetry 07/24/16 07/24/16 07/24/16 13:10 17:11 17:37 Temperature 98.7 F 98.3 F Pulse Rate 56 53 Respiratory 16 16 16 Rate Blood Pressure 110/62 109/51 (mmHg) O2 Sat by Pulse 100 98 Oximetry 07/24/16 07/24/16 07/24/16 19:03 19:37 20:00 Temperature 98.1 F Pulse Rate 79 Respiratory 18 18 18 Rate Blood Pressure 123/66 (mmHg) O2 Sat by Pulse 99 Oximetry 07/24/16 07/24/16 07/25/16 22:13 23:58 00:13 Temperature 98.5 F Pulse Rate 73 Respiratory 18 16 18 Rate Blood Pressure 120/70 (mmHg) O2 Sat by Pulse 98 Oximetry 07/25/16 07/25/16 07/25/16 03:37 07:37 08:00 Temperature 98.7 F 98.6 F Pulse Rate 57 63 Respiratory 16 16 16 Rate Blood Pressure 101/47 111/66 (mmHg) O2 Sat by Pulse 97 96 Oximetry Oxygen Devices in Use Now: None Appearance: Male lying in bed in NAD Respiratory: Symmetrical Chest Expansion and Respiratory Effort, Clear to Auscultation Cardiovascular: NL Sounds; No Murmurs; No JVD, No Edema Abdominal: NL Sounds; No Tenderness; No Distention Extremities: No Edema Skin: No Rash or Ulcers Neurological: Alert and Oriented x 3, NL Muscle Strength and Tone Nutrition: Taking PO's Result Diagrams: 07/23/16 19:45 07/23/16 19:45 Additional Lab and Data: Lab Results 07/23/16 07/23/16 Range/Units 19:45 19:45 WBC 11.1 H (3.5-10.8) 10^3/ul RBC 5.42 H (4.0-5.4) 10^6/ul Hgb 15.1 (14.0-18.0) g/dl Hct 45 (42-52) % MCV 83 (80-94) fL MCH 28 (27-31) pg MCHC 34 (31-36) g/dl RDW 13 (10.5-15) % Plt Count 180 (150-450) 10^3/ul MPV 9 (7.4-10.4) um3 Neut % (Auto) 74.0 (38-83) % Lymph % (Auto) 16.6 L (25-47) % [place] % (Auto) 6.9 (1-9) % Eos % (Auto) 0.2 (0-6) % Baso % (Auto) 2.3 H (0-2) % Absolute Neuts (auto) 8.2 H (1.5-7.7) 10^3/ul Absolute Lymphs (auto) 1.8 (1.0-4.8) 10^3/ul Absolute Monos (auto) 0.8 (0-0.8) 10^3/ul Absolute Eos (auto) 0 (0-0.6) 10^3/ul Absolute Basos (auto) 0.3 H (0-0.2) 10^3/ul Absolute Nucleated RBC 0 10^3/ul Nucleated RBC % 0 Sodium 139 (133-145) mmol/L Potassium 3.8 (3.5-5.0) mmol/L Chloride 103 (101-111) mmol/L Carbon Dioxide 30 (22-32) mmol/L Anion Gap 6 (2-11) mmol/L BUN 14 (6-24) mg/dL Creatinine 0.91 (0.67-1.17) mg/dL Est GFR ( Amer) 136.6 (>60) Est GFR (Non-Af Amer) 106.2 (>60) BUN/Creatinine Ratio 15.4 (8-20) Glucose 109 H (70-100) mg/dL Calcium 10.0 (8.6-10.3) mg/dL Total Bilirubin 0.80 (0.2-1.0) mg/dL AST 16 (13-39) U/L ALT 10 (7-52) U/L Alkaline Phosphatase 85 (34-104) U/L Total Protein 7.3 (6.4-8.9) g/dL Albumin 4.5 (3.2-5.2) g/dL Globulin 2.8 (2-4) g/dL Albumin/Globulin Ratio 1.6 (1-3) Serum Alcohol < 10 (<10) mg/dL Assess/Plan/Problems-Billing Assessment: Mr. Hunter is a 21 yo male with history of four prior concussions who was admitted after syncopizing while smoking marijuana, striking his head, and sustaining an occipital fracture and subarachnoid hemorrhage. - Patient Problems (1) Subarachnoid hemorrhage Comment: Repeat CT shows no change. Neurological exam benign. Appreciate neurosurgical consult, recommend keppra 750 BID x 7 days. PT states he is independent with ambulation. (2) Drug abuse Comment: Pt reports infrequent marijuana use and denies alcohol or other drug use. Social work consult placed. (3) DVT prophylaxis Comment: Add SCDs while headache prevents mobility. (4) Full code status Status and Disposition: Inpatient. Discharge to home.
[2016-07-25 12:02] VITALS: BP 120/70
--- NOTE | 2016-07-26 01:40 | DS ---
HOSPITAL MEDICINE DISCHARGE SUMMARY: DATE OF ADMISSION: 07/23/16 DATE OF DISCHARGE: 07/25/16 PRIMARY CARE PHYSICIAN: Dr. Pathak. ATTENDING PHYSICIAN: Nnamdi Barnes MD *(dictation provided by Carlos Conway NP ) PRIMARY DIAGNOSIS: Subarachnoid hemorrhage with occiput fracture status post syncopal episode. SECONDARY DIAGNOSIS: None. MEDICATIONS AT THE TIME OF DISCHARGE: 1. Keppra 750 mg p.o. b.i.d. x6 days. 2. Oxycodone 5/325 mg 1 tab p.o. q.6 hours p.r.n. pain (prescribed 10). 3. Lumigan 0.01% q.p.m. both eyes. HOSPITAL COURSE: Mr. Hunter is a 21-year-old male with no significant past medical history other than history of 4 previous concussions that were traumatic who presented to the hospital on 07/23/16 with concern for headaches, nausea and vomiting. Please see dictated H and P from myself for complete details. In brief, the patient stated that he has been smoking marijuana when he felt his vision narrow and he passed out. He awoke with severe pain in the back of his head where he had landed on the tile floor. The patient went to [facility] where he was diagnosed with concussion and sent home. He continued to feel unwell and developed nausea and vomiting and therefore, came back to [facility] for evaluation where CT of the brain showed "nondisplaced fracture of the left occiput as described above. 9 mm focus of subarachnoid hemorrhage just anterior to the anterior-inferior margin of the right temporal lobe and small focus of subarachnoid hemorrhage along the medial aspect of the right frontal lobe. No acute fracture or dislocations involving the cervical spine." Neurosurgery was consulted and they confirmed that no surgical intervention was required but that the patient should be started on Keppra and have a repeat CT scan in 12 hours. Mr. Hunter was admitted to the hospital, repeat CT scan showed no change in his hemorrhage. He was started on Keppra 750 mg p.o. b.i.d. and Neurosurgery has recommended this for 7 days. The patient remained in the hospital an additional night due to severe symptoms of headache and nausea. He is feeling much better this morning. He is able to ambulate independently in his room and in the hallway. He has been assessed by Physical Therapy to be safe with ambulation. Mr. Hunter is medically stable for discharge to home to follow up with Dr. Pathak. The patient has been given a note to be out of work and school for the next week but he should follow up with Dr. Pathak prior to return to school. DISPOSITION: To home. DIET: Regular. ACTIVITIES: As tolerated. FOLLOWUP PLANS: Please follow up with Dr. Pathak within the next 5 days regarding this acute hospitalization. TIME SPENT: Approximately, 60 minutes were spent in the discharge of this patient; more than half the time was spent with the him at the bedside reviewing the events leading up to this hospitalization, performing the physical examination, and reviewing the plan of care. CARLOS CONWAY NP CC: Dr. Pathak * [id number]/CPS #: [id number] YARELI
== END 2016-07-25 13:55 | disposition home or self-care (01) | DRG 55 ==
LOC: ED 17:41 → ICU 19:59 → SSU 07-24 09:52
PROVIDERS: ADMIT Hospitalist; ATTEND Internal Medicine
DX: S06.6X9A Traumatic subarachnoid hemorrhage with loss of consciousness of unspecified duration, initial encounter (principal); F12.10 Cannabis abuse, uncomplicated; S02.11HA Other fracture of occiput, left side, initial encounter for closed fracture; W18.30XA Fall on same level, unspecified, initial encounter; Y92.9 Unspecified place or not applicable
CPT/HCPCS: 36415; 70450; 72125; 80053; 80320; 85025; 99213; A9270-GY; G0463; G0480; J1885; J2270; J2405; J3010

== ENCOUNTER 2016-07-28 05:51 | Emergency (ER) | payer BC ==
--- NOTE | 2016-07-28 06:40 | ED ---
Kit Boyd Billy, scribed for Roberto Carlos Linton MD on 07/28/16 at 0604 . Headache - HPI Summary HPI Summary: Patient is a 21 year-old male coming to [facility] presenting with a constant headache since 0500 this morning. Patient comes to the ED via private car with his mother after he awoke up 0500 with N/V. He took oxycodone for pain prior to arrival. Headache is worse with bright lights. He was recently admitted for subarachnoid hemorrhage and discharged 3 days ago. - History Of Current Complaint Chief Complaint: EDHeadache Stated Complaint: HEADACHE WITH VOMITING Time Seen by Provider: 07/28/16 06:00 Hx Obtained From: Patient, Family/Automobile Rental Representative Onset/Duration: Sudden Onset, Started hours ago, Still Present Initially Headache Was: Moderate Currently Pain Is: Moderate Timing: Constant Character: Typical Headache Location of Headache: Frontal Aggravating Factor: Bright Lights Allevating Factors: Nothing Associated Signs And Symptoms: Nausea, Vomiting - Allergies/Home Medications Allergies/Adverse Reactions: Allergies Allergy/AdvReac Type Severity Reaction Status Date / Time No Known Allergies Allergy Verified 03/11/14 15:42 PMH/Surg Hx/FS Hx/Imm Hx Endocrine/Hematology History: Denies: Hx Anticoagulant Therapy, Hx Diabetes, Hx Thyroid Disease Cardiovascular History: Denies: Hx Congestive Heart Failure, Hx Deep Vein Thrombosis, Hx Hypertension , Hx Myocardial Infarction, Hx Pacemaker/ICD Respiratory History: Denies: Hx Asthma, Hx Chronic Obstructive Pulmonary Disease (COPD), Hx Lung Cancer, Hx Pneumonia, Hx Pulmonary Embolism GI History: Denies: Hx Gall Bladder Disease, Hx Gastrointestinal Bleed, Hx Ulcer, Hx Urosepsis History: Denies: Hx Dialysis, Hx Kidney Stones, Hx Renal Disease Musculoskeletal History: Denies: Hx Back Problems Sensory History: Reports: Hx Contacts or Glasses Opthamlomology History: Reports: Hx Contacts or Glasses Neurological History: Reports: Other Neuro Impairments/Disorders - Prior concussion Denies: Hx Dementia, Hx Migraine, Hx Seizures, Hx Transient Ischemic Attacks (TIA) Psychiatric History: Denies: Hx Anxiety, Hx Depression, Hx Schizophrenia, Hx Bipolar Disorder Infectious Disease History: No Infectious Disease History: Denies: Hx Hepatitis, Hx Human Immunodeficiency Virus (HIV), Traveled Outside the [place] in Last 30 Days - Family History Known Family History: Positive: Other - no history of sudden cardiac Negative: Cardiac Disease, Hypertension - Social History Alcohol Use: None Substance Use Type: Reports: Marijuana Smoking Status (MU): Never Smoked Tobacco Review of Systems Positive: Photophobia Positive: Vomiting, Nausea Positive: Headache All Other Systems Reviewed And Are Negative: Yes Physical Exam Triage Information Reviewed: Yes Vital Signs On Initial Exam: Initial Vitals Temp Pulse Resp BP Pulse Ox 98.8 F 98 20 121/71 100 07/28/16 05:54 07/28/16 05:54 07/28/16 05:54 07/28/16 05:54 07/28/16 05:54 Vital Signs Reviewed: Yes Appearance: Positive: Well-Appearing, Pain Distress - mild discomfort Skin: Positive: Warm Eyes: Positive: VERNON ENT: Positive: Hearing grossly normal Neck: Positive: Supple Respiratory/Lung Sounds: Positive: Clear to Auscultation, Breath Sounds Present Cardiovascular: Positive: RRR Abdomen Description: Positive: Nontender, Soft Bowel Sounds: Positive: Present Musculoskeletal: Positive: Strength/ROM Intact Neurological: Positive: Sensory/Motor Intact, Alert, Oriented to Person Place, Time, CN Intact II-III, Normal Gait Diagnostics - Vital Signs Vital Signs Temp Pulse Resp BP Pulse Ox 07/28/16 05:54 98.8 F 98 20 121/71 100 - Laboratory Result Diagrams: 07/28/16 06:15 07/28/16 06:15 Lab Statement: Any lab studies that have been ordered have been reviewed, and results considered in the medical decision making process. - CT brain w/o CT Interpretation Completed By: Radiologist - Stable 8mm anterior right temporal lobe parenchymal hematoma and minimal right frontal subarachnoid hemorrhage. Questionable trace left frontal subarachnoid hemorrhage as well, possibly better seen on today's exam related to changes in technique. Headache Course/Dx - Diagnoses Provider Diagnoses: Headache, Subarachnoid hemorrhage Discharge - Discharge Plan Condition: Stable Disposition: HOME Prescriptions: Ondansetron ODT TAB* [Zofran Odt TAB*] 4 mg PO Q6H PRN #20 tab.odt PRN Reason: Nausea oxyCODONE/Acetamin 5/325 MG* [Percocet 5/325 TAB*] 1 tab PO Q6H PRN #20 tab MDD 4 PRN Reason: headache Patient Education Materials: Oxycodone/Acetaminophen (By mouth), Ondansetron ( By mouth), Subarachnoid Hemorrhage (GEN), General Headache (ED) Referrals: Cesar Pathak MD [Primary Care Provider] - 1 Day Additional Instructions: Please follow-up with Dr. Pathak tomorrow or on 08/01/15. Total bed rest until you are able to follow-up with Dr. Pathak for further management. The documentation as recorded by the Kit pro Billy accurately reflects the service I personally performed and the decisions made by me, Roberto Carlos Linton MD.
[2016-07-28 06:46] LABS: Hematocrit 47 % (42-52); Hemoglobin 15.9 g/dl (14.0-18.0); Mean Corpuscular HGB Conc 34 g/dl (31-36); Mean Corpuscular Hemoglobin 28 pg (27-31); Mean Corpuscular Volume 82 fL (80-94); Mean Platelet Volume 9 um3 (7.4-10.4); Red Blood Count 5.68 10^6/ul (4.0-5.4); Red Cell Distribution Width 13 % (10.5-15); White Blood Count 8.8 10^3/ul (3.5-10.8)
--- NOTE | 2016-07-28 08:07 | RAD ---
INDICATION: Headache and vomiting in a patient with recent traumatic intracranial hemorrhage. COMPARISON: Most recent head CT's dated July 24, 2016. TECHNIQUE: Contiguous axial sections of the brain were obtained from the skull base to the vertex without contrast. FINDINGS: The ventricles and sulci are symmetric and appropriate in size. There is no hyperdense material in the dependent portion of the lateral horns. The hyperdense focus immediately anterior to the inferior margin of the right temporal lobe measures 8 mm in greatest axial dimension, slightly decreased when compared to the previous CT of the brain. At the medial aspect of the right frontal lobe there is once again a hyperdense focus similar to previous brain CTs consistent with subarachnoid hemorrhage. Surrounding this focus there is hypoattenuation measuring 2 x 3.5 cm increase in size from the previous brain CT when it measured 1.4 x 3.2 cm. Less well-defined is hypoattenuation involving the left frontal lobe. There is no appearance of significant mass effect or herniation. The appearance of the patient's left occipital bone fracture is unchanged from the previous CT. The visualized portion of the paranasal sinuses and mastoid air cells appear clear. IMPRESSION: 1. Slight interval decrease in the size of the right temporal lobe hematoma with a slight decrease in attenuation indicating evolution of extra-axial blood products. 2. Increased in the area of hypoattenuation involving the right greater than left frontal lobes consistent with bifrontal lobe edema status post trauma. 3. No change in the nondisplaced left occipital bone fracture.
[2016-07-28] MEDS ORDERED: Ondansetron INJ* 2 MG/ML VIAL IV ONE (09:52)
[2016-07-28] MEDS ORDERED: Morphine INJ* 4 MG/ML 1 ML CARPUJECT IV ONE (09:52)
[2016-07-28] MEDS ORDERED: NS 0.9% 1000 ML* 2,000 ML IV ONE (09:53)
[2016-07-28 10:28] LABS: Albumin 4.4 g/dL (3.2-5.2); BUN/Creatinine Ratio 10.9 (8-20); Calcium 10.1 mg/dL (8.6-10.3); EGFR African American 134.9 (>60); EGFR Non-African American 104.9 (>60); Globulin 2.9 g/dL (2-4); Total Bilirubin 0.6 mg/dL (0.2-1.0); Total Protein 7.3 g/dL (6.4-8.9)
[2016-07-28 12:21] VITALS: BP 116/59
--- NOTE | 2016-07-28 12:38 | ED ---
Fern Boyd Matthew, scribed for Kiko Martines MD on 07/28/16 at 1056 . Progress - Progress Note Progress Note: Re-evaluated the patient at 09:30. He continues to have a headache behind the eyes. At this time, the CT and lab results were reviewed with the family. IV fluids and pain medication will be administered. Consulted with Dr. Deleon (Neurosurgery) who recommended pain medication and to discharged the patient home if his discomfort improves. Re-evaluation at 11:39. The patient's symptoms have improved. He will follow-up with Dr. Pathak and agrees with the treatment plan. Course/Dx - Diagnoses Provider Diagnoses: Headache, Subarachnoid hemorrhage The documentation as recorded by the Fern pro Matthew accurately reflects the service I personally performed and the decisions made by Bobbi cedeno Drew, MD.
== END 2016-07-28 12:16 | disposition home or self-care (01) ==
LOC: ED 05:51
DX: R51 Headache (principal); I60.8 Other nontraumatic subarachnoid hemorrhage; R11.2 Nausea with vomiting, unspecified; H53.149 Visual discomfort, unspecified
CPT/HCPCS: 36415; 70450; 80053; 85025; 96374; 96375; 99283; J2270; J2405

== ENCOUNTER 2017-09-21 16:29 | Emergency (ER) | payer BC ==
[2017-09-21 16:35] VITALS: BP 141/83
[2017-09-21] MEDS ORDERED: Ketorolac INJ* 60 MG/2 ML VIAL IM ONE (17:43)
--- NOTE | 2017-09-21 18:07 | UC ---
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 pulled it, denies direct trauma - History of Current Complaint Chief Complaint: UCUpperExtremity Stated Complaint: SHOULDER INJURY Time Seen by Provider: 09/21/17 17:10 Hx Obtained From: Patient ?: No Onset/Duration: Gradual Onset, Lasting Days Severity Initially: Moderate Severity Currently: Severe Pain Intensity: 8 - Allergies/Home Medications Allergies/Adverse Reactions: Allergies Allergy/AdvReac Type Severity Reaction Status Date / Time No Known Allergies Allergy Verified 09/21/17 16:35 PMH/Surg Hx/FS Hx/Imm Hx Previously Healthy: Yes Other History Of: Negative For: HIV, Hepatitis B, Hepatitis C, Anticoagulant Therapy - Surgical History Surgical History: None - Family History Known Family History: Positive: Unknown - adopted, Other - no history of sudden cardiac Negative: Cardiac Disease, Hypertension - Social History Alcohol Use: None Substance Use Type: None Smoking Status (MU): Current Every Day Smoker Type: Cigarettes Amount Used/How Often: 10/day - Immunization History Most Recent Influenza Vaccination: never Most Recent Tetanus Shot: unknown Most Recent Pneumonia Vaccination: Never Review of Systems Constitutional: Negative Skin: Negative Eyes: Negative ENT: Negative Respiratory: Negative Cardiovascular: Negative Gastrointestinal: Negative Genitourinary: Negative Motor: Negative Neurovascular: Negative Musculoskeletal: Decreased ROM - right shoulder and upper back pain, Myalgia Neurological: Negative Psychological: Negative All Other Systems Reviewed And Are Negative: Yes Physical Exam Triage Information Reviewed: Yes Appearance: Thin Vital Signs: Initial Vital Signs Temp 35.4 C 09/21/17 16:30 Pulse 107 09/21/17 16:30 Resp 16 09/21/17 16:30 BP 141/83 09/21/17 16:30 Pulse Ox 100 09/21/17 16:30 Eye Exam: Normal ENT Exam: Normal Dental Exam: Normal Neck exam: Normal Neck: Positive: 1 Respiratory Exam: Normal Cardiovascular Exam: Normal Abdominal Exam: Normal Musculoskeletal: Positive: Strength Limited @, ROM Limited @ - right shoulder, Other: - exquisitely TTP over right rhomboid region Neurological Exam: Normal Psychological Exam: Normal Skin Exam: Normal Upper Extremity Course/Dx - Course Course Of Treatment: Pain improved with IM Toradol, XR of right shoulsder neg for fx or dislocation, pt likely has right rhomboid muscle spasm- Naproxen and zanaflex as prescribed - Differential Dx/Diagnosis Provider Diagnoses: right rhomboid major spasm Discharge - Sign-Out/Discharge Documenting (check all that apply): Discharge - Discharge Plan Condition: Stable Disposition: HOME Prescriptions: Naproxen 500 mg PO BID 10 Days #20 tablet. Tizanidine HCl 4 mg PO BEDTIME 5 Days #5 capsule Patient Education Materials: Muscle Spasm (ED) Referrals: Cesar Pathak MD [Primary Care Provider] - - Billing Disposition and Condition Condition: STABLE Disposition: HOME
--- NOTE | 2017-09-21 18:08 | RAD ---
Indication: RIGHT shoulder pain following lifting injury one week ago. Pain under scapula when lifting. Comparison: No relevant prior exams available on the [facility] PACS for comparison. Technique: Internal rotation AP, external rotation Grashey, scapular Y, axillary views RIGHT shoulder Report: Normal acromioclavicular and glenohumeral joint alignment. Negative for fracture. Unremarkable soft tissue contours. IMPRESSION: Negative radiographic exam of the RIGHT shoulder.
== END 2017-09-21 18:36 | disposition home or self-care (01) ==
LOC: UCEAST 16:29
DX: M62.838 Other muscle spasm (principal); F17.210 Nicotine dependence, cigarettes, uncomplicated
CPT/HCPCS: 96372; 99212; G0463; J1885

== ENCOUNTER 2018-02-19 16:08 | Inpatient (IN) | payer BC ==
[2018-02-19 16:34] LABS: Urine Appearance Clear; Urine Blood Negative (Negative); Urine Color Straw; Urine Ketones Negative (Negative); Urine Protein Negative (Negative); Urine Specific Gravity 1.003 (1.010-1.030); Urine Urobilinogen Negative (Negative)
[2018-02-19 16:50] LABS: ABS Basophils 0.1 10^3/ul (0-0.2); ABS Eosinophils 0.2 10^3/ul (0-0.6); ABS Lymphocytes 2.8 10^3/ul (1.0-4.8); ABS Monocytes 0.5 10^3/ul (0-0.8); ABS Neutrophils 3.9 10^3/ul (1.5-7.7); ABS Nucleated RBC 0 10^3/ul; Eosinophil % 2.3 % (0-6); Hematocrit 45 % (42-52); Hemoglobin 15.6 g/dl (14.0-18.0); Lymphocyte % 37.9 % (25-47); Mean Corpuscular HGB Conc 35 g/dl (31-36); Mean Corpuscular Hemoglobin 29 pg (27-31); Mean Corpuscular Volume 82 fL (80-94); Mean Platelet Volume 8.3 um3 (7.4-10.4); Nucleated Red Blood Cells % 0.2; Platelet Count 205 10^3/ul (150-450); Red Blood Count 5.41 10^6/ul (4.00-5.40); Red Cell Distribution Width 14 % (10.5-15); White Blood Count 7.5 10^3/ul (3.5-10.8)
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
[2018-02-19 17:11] LABS: EGFR Non-African American 120.9 (>60)
[2018-02-19] MEDS ORDERED: Mouth Piece, Nicotine* 1 EACH CARTRIDGE INH PRN (18:34)
[2018-02-19] MEDS ORDERED: Nicotine Inhaler* 10 MG AMP INH ONE (18:34)
[2018-02-19] MEDS ORDERED: Mouth Piece, Nicotine* 1 EACH CARTRIDGE ONE (18:38)
[2018-02-19] MEDS ORDERED: Mouth Piece, Nicotine* 1 EACH CARTRIDGE INH ONE (20:00)
[2018-02-19] MEDS ORDERED: Al Hydrox/Mg Hydrox/Simet LIQ* 30 ML UDC PO PRN (23:02)
[2018-02-19] MEDS ORDERED: Mouth Piece, Nicotine* 1 EACH CARTRIDGE INH SCH (23:02)
[2018-02-20] MEDS: Vitamin THERAPEUTIC TAB PO SCH (09:37)
[2018-02-20] MEDS: Nicotine GUM* 2 MG PO PRN (09:38)
[2018-02-20] MEDS: Nicotine Inhaler* 10 MG AMP INH PRN (09:38)
--- NOTE | 2018-02-20 11:44 | PN ---
MHU: Group Therapy Note - Service Type Service Type: [id number] Group Psychotherapy - Cognitive Behavioral Group Therapy ( CBT):Patient was attentive and participatory in CBT programming this morning, and remained in good behavioral control. Patient expressed positive insights regarding relevant treatment interventions and goals.
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
[2018-02-20] MEDS: Acetaminophen TAB* 325 MG PO PRN (22:07)
[2018-02-21] MEDS: Nicotine GUM* 2 MG PO PRN ×2 (09:06→20:47)
[2018-02-21] MEDS: Nicotine Inhaler* 10 MG AMP INH PRN ×2 (09:06→20:47)
[2018-02-21] MEDS: Vitamin THERAPEUTIC TAB PO SCH (09:18)
[2018-02-21] MEDS: Nicotine PATCH 7 MG/24 HR* PATCH TRANSDERM SCH (15:06)
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
--- NOTE | 2018-02-21 17:36 | PN ---
MHU: Group Therapy Note - Service Type Service Type: [id number] Group Psychotherapy - Group Participation Patient Participating in Group: Yes Level of Group Participation: Attentive, Spontaneously Participate Relatedness to Group: Suspicious, Well Related - Additional Group Comments Group Comments: Medication Education Group: Patient was attentive and participatory in group, and remained in good behavioral control. Patient expressed positive insights regarding relevant treatment interventions. Patient stated understanding of material discussed and had appropriate questions.
[2018-02-21] MEDS: risperiDONE TAB* 1 MG PO SCH (20:42)
[2018-02-21] MEDS: Sertraline* 50 MG TAB PO SCH (20:42)
[2018-02-21] MEDS: Nicotine Patch Removal NOTE FOLLOW UP SCH (20:44)
[2018-02-22] MEDS: Acetaminophen TAB* 325 MG PO PRN (09:06)
[2018-02-22] MEDS: Nicotine PATCH 7 MG/24 HR* PATCH TRANSDERM SCH (09:07)
[2018-02-22] MEDS: Vitamin THERAPEUTIC TAB PO SCH (09:07)
[2018-02-22] MEDS: Nicotine GUM* 2 MG PO PRN ×2 (11:50→20:37)
[2018-02-22] MEDS: Nicotine Inhaler* 10 MG AMP INH PRN ×2 (11:52→20:35)
--- NOTE | 2018-02-22 13:56 | PN ---
MHU: Group Therapy Note - Service Type Service Type: [id number] Group Psychotherapy - Cognitive Behavioral Group Therapy ( CBT):Patient was attentive and participatory in CBT programming this morning, and remained in good behavioral control. Patient expressed positive insights regarding relevant treatment interventions and goals.
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
[2018-02-22] MEDS: Sertraline* 50 MG TAB PO SCH (20:01)
[2018-02-22] MEDS: risperiDONE TAB* 1 MG PO SCH (20:01)
[2018-02-22] MEDS: Nicotine Patch Removal NOTE FOLLOW UP SCH (20:35)
[2018-02-23] MEDS: Vitamin THERAPEUTIC TAB PO SCH (09:09)
[2018-02-23] MEDS: Nicotine PATCH 7 MG/24 HR* PATCH TRANSDERM SCH (09:09)
[2018-02-23] MEDS: Nicotine GUM* 2 MG PO PRN ×3 (09:09→17:58)
[2018-02-23] MEDS: Nicotine Inhaler* 10 MG AMP INH PRN ×4 (09:09→21:13)
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
[2018-02-23] MEDS: Sertraline* 50 MG TAB PO SCH (20:34)
[2018-02-23] MEDS: Nicotine Patch Removal NOTE FOLLOW UP SCH (20:37)
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
[2018-02-24] MEDS: Nicotine PATCH 7 MG/24 HR* PATCH TRANSDERM SCH (09:07)
[2018-02-24] MEDS: Vitamin THERAPEUTIC TAB PO SCH (09:07)
[2018-02-24] MEDS: Nicotine GUM* 2 MG PO PRN ×2 (09:10→15:58)
[2018-02-24] MEDS: Nicotine Inhaler* 10 MG AMP INH PRN ×3 (09:10→20:41)
[2018-02-24] MEDS: Sertraline* 50 MG TAB PO SCH (20:39)
[2018-02-24] MEDS: Nicotine Patch Removal NOTE FOLLOW UP SCH (20:40)
[2018-02-25] MEDS: Nicotine PATCH 7 MG/24 HR* PATCH TRANSDERM SCH (09:01)
[2018-02-25] MEDS: Vitamin THERAPEUTIC TAB PO SCH (09:01)
[2018-02-25] MEDS: Nicotine GUM* 2 MG PO PRN ×2 (09:03→20:51)
[2018-02-25] MEDS: Nicotine Inhaler* 10 MG AMP INH PRN ×2 (09:03→20:51)
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
[2018-02-25] MEDS: Sertraline* 50 MG TAB PO SCH (20:49)
[2018-02-25] MEDS: Nicotine Patch Removal NOTE FOLLOW UP SCH (20:49)
[2018-02-26] MEDS: Nicotine PATCH 7 MG/24 HR* PATCH TRANSDERM SCH (09:21)
[2018-02-26] MEDS: Vitamin THERAPEUTIC TAB PO SCH (09:21)
[2018-02-26] MEDS: Nicotine Inhaler* 10 MG AMP INH PRN (09:23)
[2018-02-26] MEDS: Nicotine GUM* 2 MG PO PRN (09:23)
[2018-02-26 11:18] VITALS: BP 126/72
== END 2018-02-26 12:45 | disposition home or self-care (01) | DRG 755 ==
LOC: ED 16:08 → BSU 19:38
PROVIDERS: ADMIT Psychiatry & Neurology Psychiatry; ATTEND Psychiatry & Neurology Psychiatry
DX: F43.12 Post-traumatic stress disorder, chronic (principal); R45.851 Suicidal ideations; F17.210 Nicotine dependence, cigarettes, uncomplicated; F81.9 Developmental disorder of scholastic skills, unspecified
CPT/HCPCS: 36415; 80053; 80061; 80307; 80320; 80329; 81003; 83036; 84443; 85025; 90686; 90853; 99222; 99232; 99284; A9270-GY; G0480

== ENCOUNTER 2018-07-25 16:28 | Inpatient (IN) | payer BC ==
[2018-07-25] MEDS ORDERED: LORazepam TAB(*) 1 MG PO PRN (16:44)
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
--- OUTSIDE RECORDS SUMMARY | 2018-07-25 16:44 | XMS REPORT | Continuity of Care Document ---
:1995 External Reference #:[id number] Author Name Wilmer Stone III, MD Address [address] [place] [address] Care Team Providers Name Role Phone Harrison Lockhart MD Care Team Information Audio Video Tech Unavailable Sopchak, Heron, DO Primary Care Physician Unavailable Payers Type Date Identification Numbers Payment Provider Subscriber Policy Number: [id number] [facility] BS Of FELICITA Hunter PayID: [id number] [address] [address] [place] [address] Advance Directives Description No Information Available Problems Date Description Provider Status Onset: 07/12/2018 Mixed anxiety and depressive Wilmer Stone III, MD Active disorder Onset: 07/12/2018 Anxiety Wilmer Stone III, MD Active Onset: 07/12/2018 Ocular hypertension Wilmer Stone III, MD Active Family History Date Family Member(s) Problem(s) Comments General Not Known - Adopted Social History Type Date Description Comments Sex Unknown ETOH Use Currently consumes alcohol ETOH Use Frequent alcohol use Tobacco Use Start: Unknown Light tobacco smoker (10 or fewer cigarettes/day) Recreational Drug Use Current marijuana use Smoking Status Reviewed: 07/12/18 Light tobacco smoker (10 or fewer cigarettes/day) Allergies, Adverse Reactions, Alerts Description No Known Drug Allergies Medications Medication Date Status Form Strength Qnty SIG Indications Ordering Provider Maylin 11/03/ Active Solution 0.01% 7.500m 1 drop at H40.053 Wilmer Reyes 2018 l bedtime 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 Gabapentin 00/ Active Capsules 300mg Sopchak, 0000 Heron, DO Risperidone / Active Tablets 1mg Sopchak, 0000 Heron, DO Sertraline / Active Tablets 50mg Sopchak, HCL 0000 Heron, DO Naproxen DR / Hx Tablets DR 500mg Unknown - 2018 Tizanidine / Hx Capsules 4mg Unknown HCL - 2018 Immunizations Description No Information Available Vital Signs Date Vital Result Comment 07/12/2018 1:03pm Intraocular Pressure Right Eye 16 mmHg Ap Intraocular Pressure Left Eye 18.5 mmHg Ap 01:03 PM 11/03/2017 11:10am Intraocular Pressure Right Eye 18 mmHg Ta Intraocular Pressure Left Eye 19 mmHg Ta 04/20/2017 2:16pm Intraocular Pressure Right Eye 17 mmHg ap Intraocular Pressure Left Eye 15 mmHg ap Cornea Thickness Left Eye 615 m Cornea Thickness Right Eye 600 m Results Description No Information Available Procedures Date Code Description Status 07/12/2018 01655 Scan Computer Diag Imag W/Report Optic Nerve Completed 07/12/2018 75729 Vis Field W/Med Diag;Ext,Yang Per Completed 11/03/2017 40184 Scan Computer Diag Imag W/Report Optic Nerve Completed 11/03/2017 36179 Vis Field W/Med Diag;Ext,Yang Per Completed 11/03/2017 61561 Exam, Comprehensive, Est PT Completed 04/20/2017 89716 Ophthalmoscopy; W/Fundus Photo Completed 04/20/2017 81985 Vis Field W/Med Diag;Ext,Yang Per Completed 04/20/2017 28353 Exam, Comprehensive, Est PT Completed 10/17/2016 29124 Exam, Comprehensive, Est PT Completed 10/17/2016 27346 Vis Field W/Med Diag;Ext,Yang Per Completed 10/17/2016 35145 Scan Computer Diag Imag W/Report Optic Nerve Completed 02/02/2016 51529 Scan Computer Diag Imag W/Report Optic Nerve Completed 02/02/2016 91994 Vis Field W/Med Diag;Ext,Yang Per Completed 02/02/2016 34617 Exam, Comprehensive, Est PT Completed 06/16/2015 56095 Scan Computer Diag Imag W/Report Optic Nerve Completed 06/16/2015 72464 Vis Field W/Med Diag;Ext,Yang Per Completed 06/16/2015 29011 Exam, Comprehensive, Est PT Completed 11/26/2014 91543 Scan Computer Diag Imag W/Report Optic Nerve Completed 11/26/2014 31766 Vis Field W/Med Diag;Ext,Yang Per Completed 11/26/2014 11561 Exam, Comprehensive, Est PT Completed 04/09/2014 98201 Exam, Comprehensive, Est PT Completed 04/09/2014 84443 Vis Field W/Med Diag;Ext,Yang Per Completed 08/20/2013 97493 Ophthalmoscopy; W/Fundus Photo Completed 07/22/2013 95650 Scan Computer Diag Imag W/Report Optic Nerve Completed 07/22/2013 88389 Vis Field W/Med Diag;Ext,Yang Per Completed 07/22/2013 87536 Exam, Intermediate Est PT Completed 10/17/2012 00500 Scan Computer Diag Imag W/Report Optic Nerve Completed 10/17/2012 41416 Vis Field W/Med Diag;Ext,Yang Per Completed 04/19/2012 96498 Vis Field W/Med Diag;Ext,Yang Per Completed 02/04/2010 61988 Vis Field W/Med Diag;Ext,Yang Per Completed 12/01/2009 33122 Refraction Completed 12/01/2009 92348 Exam, Comprehensive, Est PT Completed 04/23/2009 27998 Vis Field W/Med Diag;Ext,Yang Per Completed 04/23/2009 99148 OCT Completed 04/23/2009 85296 OCT Completed 06/27/2008 48799 OCT Completed 06/27/2008 19987 OCT Completed 06/27/2008 27918 Vis Field W/Med Diag;Ext,Yang Per Completed 06/01/2007 99943 Ophthalmoscopy; W/Fundus Photo Completed 06/01/2007 08211 Vis Field W/Med Diag;Ext,Yang Per Completed 11/30/2006 90306 OCT Completed 11/30/2006 67201 OCT Completed 11/30/2006 43691 Vis Field W/Med Diag;Ext,Yang Per Completed Encounters Type Date Location Provider Dx Diagnosis Office Visit 04/08/2016 Main Office Elias Kirk, H40.053 Ocular 2:30p OD hypertension, bilateral H15.102 Unspecified episcleritis, left eye H10.32 Unspecified acute conjunctivitis, left eye Office Visit 04/01/2016 1:30p Main Office Elias Kirk, H40.053 Ocular OD hypertension, bilateral Office Visit 12/09/2013 9:30a Main Office Tavo Gardner 365.04 Glaucoma Terry MD Hypertension Ocular 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 Office Visit 08/20/2013 1:30p Main Office Tavo Gardner 365.04 Glaucoma Terry RICO Hypertension Ocular Office Visit 10/17/2012 2:00p Main Office Tavo Gardner 365.00 Preglaucoma Unspec Terry [place] Office Visit 04/19/2012 8:30a Main Office Tavo Gardner 365.04 Glaucoma Terry [place] Hypertension Ocular Office Visit 02/04/2010 8:30a Main Office Tavo Gardner 365.04 Glaucoma Terry [place] Hypertension Ocular 365.00 Preglaucoma Unspec Office Visit 04/23/2009 8:15a Main Office Tavo Gardner 365.00 Preglaucoma Unspec Terry [place] Office Visit 06/27/2008 9:45a Main Office Tavo Gardner 365.04 Glaucoma Terry [place] Hypertension Ocular Office Visit 06/01/2007 9:45a Main Office Tavo aGrdner 365.00 Pregyessioma Unspec Terry [place] Office Visit 11/30/2006 2:00p Main Office Tavo Gardner 365.00 Preglaucoma Unspec Terry [place] Plan of Treatment 07/12/2018 - Wilmer Stone III H40.053 Ocular hypertension, bilateralComments:Continue same medication Consider changing glassesFollow up:6 mo iop 30-2 oct dilate myd 1/2%
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
[2018-07-25 17:07] LABS: ABS Basophils 0.1 10^3/ul (0-0.2); ABS Eosinophils 0.1 10^3/ul (0-0.6); ABS Lymphocytes 2.2 10^3/ul (1.0-4.8); ABS Monocytes 0.5 10^3/ul (0-0.8); ABS Neutrophils 6.4 10^3/ul (1.5-7.7); ABS Nucleated RBC 0 10^3/ul; Eosinophil % 0.9 %; Hematocrit 47 % (42-52); Hemoglobin 16.6 g/dl (14.0-18.0); Lymphocyte % 24.1 %; Mean Corpuscular HGB Conc 35 g/dl (31-36); Mean Corpuscular Hemoglobin 30 pg (27-31); Mean Corpuscular Volume 84 fL (80-94); Mean Platelet Volume 8.6 fL (7.4-10.4); Nucleated Red Blood Cells % 0; Platelet Count 210 10^3/ul (150-450); Red Cell Distribution Width 14 % (10.5-15); White Blood Count 9.3 10^3/ul (3.5-10.8)
[2018-07-25 17:20] LABS: ALT 16 U/L (7-52); AST 24 U/L (13-39); Albumin/Globulin Ratio 1.9 (1-3); Alkaline Phosphatase 83 U/L (34-104); Anion Gap 7 mmol/L (2-11); BUN/Creatinine Ratio 10.9 (8-20); Blood Urea Nitrogen 11 mg/dL (6-24); CO2 Carbon Dioxide 29 mmol/L (22-32); Calcium 10.5 mg/dL (8.6-10.3); Chloride 103 mmol/L (101-111); EGFR African American 111.8 (>60); EGFR Non-African American 92.4 (>60); Globulin 2.7 g/dL (2-4); Glucose 108 mg/dL (70-100); Potassium 3.7 mmol/L (3.5-5.0); Sodium 139 mmol/L (135-145); Total Protein 7.7 g/dL (6.4-8.9)
[2018-07-25 17:44] LABS: Acetaminophen < 15 mcg/mL; Alcohol < 10 mg/dL (<10); Salicylate < 2.50 mg/dL (<30)
[2018-07-25 17:54] LABS: TSH (Thyroid Stimulating Horm) 1.76 mcIU/mL (0.34-5.60)
[2018-07-25 18:42] LABS: Urine Appearance Clear; Urine Bilirubin Negative (Negative); Urine Blood Negative (Negative); Urine Color Straw; Urine Glucose Negative (Negative); Urine Ketones Negative (Negative); Urine Nitrite Negative (Negative); Urine Protein Negative (Negative); Urine Specific Gravity 1.002 (1.010-1.030); Urine Urobilinogen Negative (Negative)
[2018-07-25 19:05] LABS: Barbiturates Urine Screen None Detected (None Detect); Benzodiazepine Urine Screen None Detected (None Detect); Urine Cannabinoids Screen Presumptive Positive (None Detect)
[2018-07-25] MEDS ORDERED: Mouth Piece, Nicotine* 1 EACH CARTRIDGE INH ONE (21:00)
[2018-07-25] MEDS ORDERED: Sertraline* 50 MG TAB PO SCH (22:00)
[2018-07-25] MEDS: Nicotine Inhaler* 10 MG AMP INH PRN (22:01)
[2018-07-25] MEDS: risperiDONE TAB* 1 MG PO SCH (22:03)
[2018-07-25] MEDS: Gabapentin CAP(*) 300 MG PO SCH (22:03)
[2018-07-25] MEDS: Latanoprost 0.005%* 2.5 ml BTL BOTH EYES SCH (22:15)
[2018-07-25] MEDS ORDERED: Al Hydrox/Mg Hydrox/Simet LIQ* 30 ML UDC PO PRN (22:19)
[2018-07-25] MEDS ORDERED: Acetaminophen TAB* 325 MG PO PRN (22:19)
[2018-07-25] MEDS ORDERED: hydrOXYzine HCL TAB* 50 MG PO PRN (22:20)
[2018-07-25] MEDS ORDERED: Nicotine GUM* 2 MG PO PRN (22:22)
[2018-07-26] MEDS: Nicotine Inhaler* 10 MG AMP INH PRN ×2 (09:05→16:13)
[2018-07-26] MEDS: Multivitamins/Minerals TAB PO SCH (09:05)
[2018-07-26] MEDS: Nicotine PATCH 21 MG/24 HR* PATCH TRANSDERM SCH (09:06)
--- NOTE | 2018-07-26 11:02 | PN ---
BSU: Group Therapy Note - Service Type Service Type: [id number] Group Psychotherapy - Cognitive Behavioral Group Therapy ( CBT):Patient attended CBT programming this morning and presented with flat affect that did not vary with discussion. Although responsive to direct prompts to respond to questions, patient did not engage in spontaneous conversation.
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
[2018-07-26] MEDS: risperiDONE TAB* 1 MG PO SCH (20:37)
[2018-07-26] MEDS: Gabapentin CAP(*) 300 MG PO SCH (20:37)
[2018-07-26] MEDS: Latanoprost 0.005%* 2.5 ml BTL BOTH EYES SCH (20:45)
[2018-07-26] MEDS ORDERED: Nicotine Patch Removal NOTE PATCH OFF SCH (21:00)
[2018-07-26] MEDS ORDERED: Sertraline* 100 MG TAB PO SCH (21:00)
[2018-07-27] MEDS: Nicotine Inhaler* 10 MG AMP INH PRN ×2 (08:29→12:09)
[2018-07-27] MEDS: Multivitamins/Minerals TAB PO SCH (08:29)
[2018-07-27 08:30] VITALS: BP 131/63
[2018-07-27] MEDS: Nicotine PATCH 21 MG/24 HR* PATCH TRANSDERM SCH (08:31)
--- NOTE | 2018-07-28 02:01 | DS ---
CC: Kiarra Chinchilla; Dr. Johnson * DISCHARGE SUMMARY: DATE OF ADMISSION: 07/25/18 DATE OF DISCHARGE: 07/27/18 SUPERVISING PSYCHIATRIST: Dr. Carlos Myles.* (DICTATED BY [facility] NP) DISCHARGE DIAGNOSES: 1. Posttraumatic stress disorder. 2. Unspecified learning disability. 3. Cannabis use disorder. CONDITION AT THE TIME OF DISCHARGE: Improved. The patient is euthymic, calm and in behavioral control. He denies suicidal ideation or passive wish. He denies homicidal or violent ideation. He requests to be discharged due to acuity of unit and this is appropriate for many reasons including preventing increased dependence on institutions. He is hopeful to attend [facility] program and identifies that that would provide improved structure. He is restarted on medications and tolerated these well. He participated well in conversation today including discussing topics of safety planning and means restriction. He gave senior medical writer permission to speak with his mother and his friend, Bianca. I left a message for his mother on her cell phone, who is on vacation at this time. According to the patient's friend, Bianca, at [phone], they have been friends since they were 9 years old, she plans to have him stay with her for this week while his parents are out of town. She states that she cares for him greatly and will make sure that he is taking medications as well as avoiding unsafe behaviors. MENTAL STATUS EXAM: Joey is a 23-year-old thin white male who appears slightly younger than stated age. He is wearing dark-rimmed glasses and noted to have a strabismus. He is wearing his own casual clothing and his ADLs are completed. The patient is alert and oriented x3. Eye contact is good. Speech is soft and articulate with normal rate and rhythm. Mood is euthymic with bright affect. No abnormal psychomotor activity noted. Thought process is logical, coherent, and goal directed. Thought content is negative for suicidal ideations or urges for self-harm. He denies auditory or visual hallucinations. He denies HI or . Insight and judgment are good in this setting and fund of knowledge is adequate. The patient has demonstrated improved distress tolerance and motivation for continued work on mental health. INSTRUCTIONS GIVEN TO THE PATIENT: A. Medications: 1. Gabapentin 300 mg p.o. q.h.s. 2. Hydroxyzine 50 mg p.o. t.i.d. p.r.n. anxiety. 3. Nicotine gum 2 mg p.o. q.2 hours p.r.n. craving. 4. Nicotine patch 21 mg daily. 5. Risperidone 1 mg q.h.s. 6. Sertraline 100 mg p.o. q.h.s. B. Diet: Regular. C. Activity: Ambulation as tolerated. There are no pending labs or diagnostic studies. D. Followup care: The patient will follow up with outpatient therapist, Kiarra Chinchilla. He is also encouraged to follow up with Kiarra in regards to admission to the [facility] program at [facility]. He can follow up with his primary care provider, Dr. Johnson, as needed. E. Substance use followup: The patient declined offer of substance use referrals. HISTORY OF PRESENT ILLNESS: Joey is a 23-year-old white male who lives at home with his parents, recently withdrew from [employer] and then was fired from his job at [employer]. He was fired for stealing money from the [employer]. This is his second psychiatric hospitalization; last one was in February of last year due to suicidal ideations. The patient has a twin brother, Gabino, who has moved out of the home. The twins were housed in an orphanage in [place] until they were adopted at age 3-1/2. According to collateral from his outpatient therapist, the patient has had increased use of alcohol and cannabis as well as driving recklessly. Please see full H and P dictated by this senior medical writer for complete admission information. HOSPITAL COURSE: Part A. Reason for admission: The patient presented to the emergency department voluntarily self-referred due to suicidal ideation and recent self-destructive behaviors. He had met with his outpatient therapist prior to arrival. Part B. Psychiatric treatment rendered: The patient was admitted to adult behavioral services unit on voluntary status. Code status was full. He was placed on 15-minute checks for his safety. He quickly started participating in programming, interactions with staff and peers. He reported not taking medications for 2 weeks prior to admission. He identified increased alcohol and cannabis use. He was receptive to therapeutic suggestions such as resuming medications and working on improved communication with his parents. On first day of admission, the patient went to the bathroom and engaged in superficial self-injury on tiles in the bathroom. He completed a behavioral chain analysis and was encouraged and supported to utilize improved and healthier coping skills. Later that evening, he had urges for self harm and he was able to express this to staff and participate in distraction techniques. Today, the patient reports readiness for discharge. He states that he has plans with friends and is hopeful to connect with them. As stated above, he allowed senior medical writer to discuss discharged planning with his friend, Bianca. Due to obligation to treat in this restrictive setting, the patient was discharged and given discharge instructions by nursing staff. MERCY REID NP [id number]/CPS #: [id number] YARELI
== END 2018-07-27 13:50 | disposition home or self-care (01) | DRG 755 ==
LOC: ED 16:28 → BSU 20:35
PROVIDERS: ADMIT Psychiatry & Neurology Psychiatry; ATTEND Psychiatry & Neurology Psychiatry
PROC: GZHZZZZ Group Psychotherapy (ICD-10-PCS; principal; 2018-07-26)
DX: F43.10 Post-traumatic stress disorder, unspecified (principal); R45.851 Suicidal ideations; F32.9 Major depressive disorder, single episode, unspecified; F41.0 Panic disorder [episodic paroxysmal anxiety]; F17.210 Nicotine dependence, cigarettes, uncomplicated; F12.90 Cannabis use, unspecified, uncomplicated; F81.9 Developmental disorder of scholastic skills, unspecified; R45.1 Restlessness and agitation; R45.850 Homicidal ideations; Z62.810 Personal history of physical and sexual abuse in childhood; Z91.5 Personal history of self-harm; Z72.89 Other problems related to lifestyle; Z91.14 Patient's other noncompliance with medication regimen
CPT/HCPCS: 36415; 80053; 80307; 80320; 80329; 81003; 84443; 85025; 99284; A9270-GY; G0480

== ENCOUNTER 2019-04-17 23:44 | Emergency (ER) | payer BC ==
[2019-04-17] MEDS ORDERED: Haloperidol INJ IV/IM* 5 MG/ML AMP IM ONE (23:49)
[2019-04-17] MEDS ORDERED: LORazepam INJ* 2 MG/ML 1 ML VIAL IM ONE (23:49)
[2019-04-17] MEDS ORDERED: LORazepam INJ* 2 MG/ML 1 ML VIAL ONE (23:52)
[2019-04-17] MEDS ORDERED: Lorazepam PYXIS KEY ONE (23:52)
--- NOTE | 2019-04-18 00:11 | ED ---
Substance Abuse/Use - HPI Summary HPI Summary: 24 year old M brought in by EMS to [facility] due to agitated behavior consequent to ETOH intoxication since minutes prior to arrival. Symptoms aggravated by nothing. Symptoms alleviated by nothing. LEVEL 5 CAVEAT: HPI is limited because patient is agitated and uncooperative. - History Of Current Complaint Chief Complaint: EDSubstanceAbuse Stated Complaint: SEIZURE PER EMS Hx Obtained From: EMS Aggravating Factor(s): Nothing Alleviating Factor(s): Nothing - Allergies/Home Medications Allergies/Adverse Reactions: Allergies Allergy/AdvReac Type Severity Reaction Status Date / Time bee venom protein (honey bee) Allergy Swelling Verified 04/17/19 23:54 Of Face,Lips,& Throat PMH/Surg Hx/FS Hx/Imm Hx Endocrine/Hematology History: Denies: Hx Anticoagulant Therapy, Hx Diabetes, Hx Thyroid Disease Cardiovascular History: Denies: Hx Congestive Heart Failure, Hx Deep Vein Thrombosis, Hx Hypertension , Hx Myocardial Infarction, Hx Pacemaker/ICD Respiratory History: Denies: Hx Asthma, Hx Chronic Obstructive Pulmonary Disease (COPD), Hx Lung Cancer, Hx Pneumonia, Hx Pulmonary Embolism GI History: Denies: Hx Gall Bladder Disease, Hx Gastrointestinal Bleed, Hx Ulcer, Hx Urosepsis History: Denies: Hx Dialysis, Hx Kidney Stones, Hx Renal Disease Musculoskeletal History: Denies: Hx Back Problems Sensory History: Reports: Hx Contacts or Glasses - glasses Denies: Hx Hearing Aid Opthamlomology History: Reports: Hx Contacts or Glasses - glasses Neurological History: Reports: Hx Headaches, Other Neuro Impairments/Disorders - Prior concussions (x4), passes out Denies: Hx Dementia, Hx Migraine, Hx Seizures, Hx Transient Ischemic Attacks (TIA) Psychiatric History: Reports: Hx Anxiety, Hx Depression, Hx Panic Disorder, Hx Inpatient Treatment, Hx Community Mental Health Tx, Hx Suicide Attempt, Hx of Violent Episodes Against Others, Hx Substance Abuse Denies: Hx Eating Disorder, Hx Schizophrenia, Hx Bipolar Disorder Infectious Disease History: Unable to Obtain/Confirm Infectious Disease History: Denies: Hx Hepatitis, Hx Human Immunodeficiency Virus (HIV), Traveled Outside the [place] in Last 30 Days - Family History Known Family History: Positive: Unknown - adopted, Other - no history of sudden cardiac Negative: Cardiac Disease, Hypertension - Social History Alcohol Use: Daily Hx Substance Use: Yes Substance Use Type: Reports: Marijuana Hx Tobacco Use: Yes Smoking Status (MU): Current Every Day Smoker Type: Cigarettes Amount Used/How Often: 10/day Review of Systems Negative: Fever Positive: Other - ETOH intoxication All Other Systems Reviewed And Are Negative: Yes Physical Exam - Summary Physical Exam Summary: Appearance: Well-appearing, Well-nourished, lying in bed comfortably. No signs of any recent trauma. Skin: Warm, dry, no obvious rash Eyes: sclera anicteric, no conjunctival pallor ENT: mucous membranes moist, pharynx appears normal Neck: Supple, nontender Respiratory: Clear to auscultation, no signs of respiratory distress Cardiovascular: Normal S1, S2. No murmurs. Normal distal pulses in tibial and radial bilaterally. Abdomen: Soft, nontender, normal active bowel sounds present Musculoskeletal: Normal, Strength/ROM Intact Neurological: Patient is awake and alert Psychiatric: Patient is agitated and uncooperative Triage Information Reviewed: Yes Vital Signs On Initial Exam: Initial Vitals Temp Pulse Resp BP Pulse Ox 99.1 F 131 22 148/97 100 04/17/19 23:52 04/17/19 23:52 04/17/19 23:52 04/17/19 23:52 04/17/19 23:52 Vital Signs Reviewed: Yes Procedures - Sedation Patient Received Moderate/Deep Sedation with Procedure: No Diagnostics - Vital Signs Vital Signs Temp Pulse Resp BP Pulse Ox 04/17/19 23:56 16 04/17/19 23:52 99.1 F 131 22 148/97 100 - Laboratory Lab Statement: Any lab studies that have been ordered have been reviewed, and results considered in the medical decision making process. Course/Dx - Course Course Of Treatment: 24 year old M brought in by EMS to [facility] complains of ETOH intoxication since minutes prior to arrival. Upon exam, the patient is awake and alert, agitated, and uncooperative. In the ED course, the patient was chemically restrained with Ativan 2 mg IM and Haldol 10 mg IM. Toxicology results with no significant abnormalities except for alcohol 329. The patient will be signed out to Dr. Alcocer upon shift change 04/18/19 at 07:00 pending clinical sobriety and disposition. - Diagnoses Provider Diagnoses: Alcohol intoxication Discharge ED - Sign-Out/Discharge Documenting (check all that apply): Sign-Out Patient Signing out patient TO: Roberto Carlos Alcocer - Discharge Plan Condition: Improved Disposition: HOME Patient Education Materials: Alcohol Intoxication (ED) Referrals: [facility] [Outside] Heron Johnson DO [Primary Care Provider] - - Billing Disposition and Condition Condition: IMPROVED Disposition: Home - Attestation Statements Document Initiated by Taylor: Yes Documenting Scribe: Graciela Zuñiga Provider For Whom Taylor is Documenting (Include Credential): Cecil Low MD Scribe Attestation: IGraciela, scribed for Cecil Low MD on 04/18/19 at 1846. Scribe Documentation Reviewed: Yes Provider Attestation: The documentation as recorded by the Graciela pro accurately reflects the service I personally performed and the decisions made by me, Cecil Low MD Status of Scribe Document: Viewed
[2019-04-18 07:31] VITALS: BP 105/57
== END 2019-04-18 07:28 | disposition home or self-care (01) ==
LOC: ED 23:44
DX: F10.929 Alcohol use, unspecified with intoxication, unspecified (principal); F17.210 Nicotine dependence, cigarettes, uncomplicated
CPT/HCPCS: 36415; 80320; 96372; 99285; G0480; J1630; J2060

== ENCOUNTER 2021-02-07 16:53 | Inpatient (IN) ==
[2021-02-07 18:17] LABS: ABS Basophils 0.1 10^3/ul (0-0.2); ABS Eosinophils 0.2 10^3/ul (0-0.6); ABS Lymphocytes 2.3 10^3/ul (1.0-4.8); ABS Monocytes 0.6 10^3/ul (0-0.8); ABS Neutrophils 5.4 10^3/ul (1.5-7.7); Eosinophil % 1.9 %; Hematocrit 50 % (42-52); Hemoglobin 17.4 g/dL (14.0-18.0); Lymphocyte % 27.6 %; Mean Corpuscular HGB Conc 35 g/dL (31-36); Mean Corpuscular Hemoglobin 30 pg (27-31); Mean Corpuscular Volume 87 fL (80-94); Mean Platelet Volume 9.4 fL (7.4-10.4); Nucleated Red Blood Cells % 0.1; Platelet Count 173 10^3/uL (150-450); Red Blood Count 5.77 10^6 /uL (4.18-5.48); Red Cell Distribution Width 13 % (10-15); White Blood Count 8.5 10^3/uL (3.5-10.8)
[2021-02-07 18:24] LABS: Urine Appearance Clear; Urine Bilirubin Negative (Negative); Urine Blood Negative (Negative); Urine Color Straw; Urine Glucose Negative (Negative); Urine Ketones Negative (Negative); Urine Nitrite Negative (Negative); Urine Protein Negative (Negative); Urine Specific Gravity 1.006 (1.002-1.030); Urine Urobilinogen Negative (Negative)
[2021-02-07 18:28] LABS: ALT 17 U/L (7-52); AST 29 U/L (13-39); Albumin 4.9 g/dL (3.2-5.2); Albumin/Globulin Ratio 1.8 (1-3); Alkaline Phosphatase 93 U/L (35-149); Anion Gap 8 mmol/L (2-11); Blood Urea Nitrogen 16 mg/dL (6-24); CO2 Carbon Dioxide 28 mmol/L (22-32); Calcium 10.2 mg/dL (8.6-10.3); Chloride 102 mmol/L (101-111); EGFR African American 105.3 (>60); Globulin 2.7 g/dL (2-4); Glucose 91 mg/dL (70-100); Potassium 3.9 mmol/L (3.5-5.0); Sodium 138 mmol/L (135-145); Total Protein 7.6 g/dL (6.4-8.9)
[2021-02-07 18:37] LABS: Alcohol, S < 13 mg/dL (<13); Salicylate < 2.50 mg/dL (<30)
[2021-02-07 18:39] LABS: Urine Benzodiazepine Screen None Detected (None Detect); Urine Cannabinoids Screen Presumptive Positive (None Detect); Urine Opiates Screen None Detected (None Detect)
[2021-02-07 18:52] LABS: TSH Ultra Thyroid Stim Horm 1.71 mcIU/mL (0.34-5.60)
[2021-02-07 18:54] LABS: Acetaminophen < 15 mcg/mL
[2021-02-07] MEDS: Nicotine GUM 4MG FRUIT FLAVOR PO PRN (21:40)
[2021-02-08] MEDS ORDERED: Al Hydrox/Mg Hydrox/Simet LIQ 30 ML UDC PO PRN (03:07)
[2021-02-08] MEDS: Vitamin THERAPEUTIC TAB PO SCH (12:22)
[2021-02-08] MEDS: Nicotine PATCH 14 MG/24 HR PATCH TRANSDERM SCH (12:22)
[2021-02-08] MEDS: Nicotine GUM 4MG FRUIT FLAVOR PO PRN ×2 (16:00→19:05)
[2021-02-08] MEDS: PTO:Bimatoprost 0.01% OPHTH (NF) 2.5 ML BTL BOTH EYES SCH (20:56)
[2021-02-09] MEDS: Vitamin THERAPEUTIC TAB PO SCH (08:54)
[2021-02-09] MEDS: Nicotine GUM 4MG FRUIT FLAVOR PO PRN ×3 (08:54→18:24)
[2021-02-09 09:09] LABS: HDL Cholesterol 56.3 mg/dL
[2021-02-09] MEDS: Nicotine PATCH 14 MG/24 HR PATCH TRANSDERM SCH (09:14)
[2021-02-09] MEDS: PTO:Bimatoprost 0.01% OPHTH (NF) 2.5 ML BTL BOTH EYES SCH (20:15)
[2021-02-09] MEDS: Nicotine GUM 2MG FRUIT FLAVOR PO PRN (20:18)
[2021-02-10] MEDS: Vitamin THERAPEUTIC TAB PO SCH (08:17)
[2021-02-10] MEDS: Nicotine PATCH 14 MG/24 HR PATCH TRANSDERM SCH (08:17)
[2021-02-10] MEDS: Nicotine GUM 4MG FRUIT FLAVOR PO PRN ×4 (08:19→20:21)
[2021-02-10] MEDS: PTO:Bimatoprost 0.01% OPHTH (NF) 2.5 ML BTL BOTH EYES SCH (20:18)
[2021-02-11] MEDS: Vitamin THERAPEUTIC TAB PO SCH (08:41)
[2021-02-11] MEDS: Nicotine GUM 2MG FRUIT FLAVOR PO PRN ×3 (08:41→14:08)
[2021-02-11] MEDS: Nicotine GUM 4MG FRUIT FLAVOR PO PRN ×2 (14:50→20:08)
[2021-02-11] MEDS: PTO:Bimatoprost 0.01% OPHTH (NF) 2.5 ML BTL BOTH EYES SCH (20:08)
[2021-02-12] MEDS: Vitamin THERAPEUTIC TAB PO SCH (08:44)
[2021-02-12] MEDS: Nicotine GUM 4MG FRUIT FLAVOR PO PRN ×4 (09:04→20:35)
[2021-02-12] MEDS: PTO:Bimatoprost 0.01% OPHTH (NF) 2.5 ML BTL BOTH EYES SCH (20:14)
[2021-02-13] MEDS: Vitamin THERAPEUTIC TAB PO SCH (08:07)
[2021-02-13] MEDS: Nicotine GUM 4MG FRUIT FLAVOR PO PRN ×5 (08:08→19:27)
[2021-02-13] MEDS: PTO:Bimatoprost 0.01% OPHTH (NF) 2.5 ML BTL BOTH EYES SCH (20:34)
[2021-02-14] MEDS: Vitamin THERAPEUTIC TAB PO SCH (07:36)
[2021-02-14] MEDS: Nicotine GUM 4MG FRUIT FLAVOR PO PRN ×4 (08:38→20:09)
[2021-02-14] MEDS: PTO:Bimatoprost 0.01% OPHTH (NF) 2.5 ML BTL BOTH EYES SCH (20:07)
[2021-02-15] MEDS: Nicotine GUM 4MG FRUIT FLAVOR PO PRN ×8 (05:09→20:33)
[2021-02-15] MEDS: Vitamin THERAPEUTIC TAB PO SCH (08:03)
[2021-02-15] MEDS: PTO:Bimatoprost 0.01% OPHTH (NF) 2.5 ML BTL BOTH EYES SCH (19:39)
[2021-02-16 07:35] VITALS: BP 135/88
[2021-02-16] MEDS: Vitamin THERAPEUTIC TAB PO SCH (08:17)
[2021-02-16] MEDS: Nicotine GUM 4MG FRUIT FLAVOR PO PRN ×2 (08:19→10:43)
== END 2021-02-16 12:35 | disposition home or self-care (01) | DRG 755 ==
LOC: ED 16:53 → BSU 02-08 02:56
PROVIDERS: ADMIT Psychiatry & Neurology Psychiatry; ATTEND Psychiatry & Neurology Psychiatry